=== PATIENT | female | born 1960 | race African-American/Black ===

== ENCOUNTER 2021-04-19 08:49 | Inpatient (IN) | payer OTHER, MEDICAID ==
[~2021-04-19] VITALS: Ht 167.6 cm; Wt 94.8 kg
[2021-04-19] MEDS ORDERED: VANCOMYCIN 1 G PREMIX 200 ML IV ONE (09:15)
[2021-04-19] MEDS ORDERED: PIPERACILLIN/TAZ 3.375G PREMIX 50 ML IV ONE (09:15)
[2021-04-19] MEDS ORDERED: SODIUM CHLORIDE 0.9% 1000ML BAG (SEPSIS BOLUS) IV ONE (09:15)
[2021-04-19] MEDS ORDERED: FENTANYL CITRATE/PF 500 MCG in SODIUM CHLORIDE 0.9% 40 ML IV STA (09:20)
[2021-04-19] MEDS ORDERED: FENTANYL CITRATE/PF 50MCG/ML 2ML VIAL IV ONE (09:30)
[2021-04-19] MEDS ORDERED: MIDAZOLAM HCL 100 MG in SODIUM CHLORIDE 0.9% 100 ML IV PRN (09:30)
[2021-04-19] MEDS ORDERED: MIDAZOLAM HCL 100 MG in DEXT 5% WATER 80 ML IV ONE (09:30)
[2021-04-19 09:39] LABS: BASOPHILS % 0.6 % (0.0-2.0); CHLORIDE 107 mEq/L (98-107); EOSINOPHILS % 0.1 % (0.0-5.0); HEMOGLOBIN. 13.3 g/dL (12.0-16.0); LYMPHOCYTES % 32.6 % (20.0-50.0); MEAN CORPUSCULAR HEMOGLOBIN 26.7 pg (28.0-32.0); MONOCYTES % 5.2 % (2.0-8.0); NEUTROPHILS % 61.5 % (40.0-76.0); PLATELET 136 x1000/uL (130-400); RED CELL DISTRIBUTION WIDTH 15.4 % (11.6-14.6)
[2021-04-19 09:45] LABS: D-DIMER 3.96 mg/L FEU (<0.50); INR 1.1; PROTHROMBIN TIME 11.4 sec (9.6-11.0)
[2021-04-19 09:49] LABS: CREATINE KINASE 189 IU/L (26-192)
[2021-04-19 09:53] LABS: BG BASE EXCESS -13.2 mmol/L (-2.0-2.0); BG CARBOXYHEMOGLOBIN 0.3 % (0.5-1.5); BG DEOXYHEMOGLOBIN 3.9 % (0.0-5.0); BG HCO3 ACT 15.5 mmol/L (22.0-26.0); BG METHEMOGLOBIN 0.1 % (0.0-1.5); BG OXYGEN SATURATION 96.1 % (92.0-98.5); BG OXYHEMOGLOBIN 95.7 % (94.0-97.0); BG PCO2 46.9 mmHg (35.0-45.0); BG PH 7.137 (7.350-7.450); BG PO2 115.4 mmHg (75.0-100.0); BG SAMPLE SITE RIGHT RADIAL; BG TOTAL HEMOGLOBIN 12.3 g/dL (12.0-18.0); BG VENT MODE VENT - AC
[2021-04-19 09:58] LABS: CLARITY URINE TURBID (CLEAR); COLOR URINE YELLOW (YELLOW); KETONES URINE NEGATIVE (NEGATIVE); LEUKOCYTE ESTERASE URINE NEGATIVE (NEGATIVE); NITRITE URINE NEGATIVE (NEGATIVE); OCCULT BLOOD URINE 3+ (NEGATIVE); PROTEIN URINE 4+ (NEGATIVE); SPECIFIC GRAVITY URINE 1.058 (1.005-1.030); UROBILINOGEN URINE 0.2 E.U./dL (0.2-1.0)
[2021-04-19] MEDS ORDERED: FENTANYL CITRATE 2,500 MCG in SODIUM CHLORIDE 0.9% 200 ML IV PRN (10:00)
[2021-04-19 16:05] LABS: BG BASE EXCESS -6.2 mmol/L (-2.0-2.0); BG CARBOXYHEMOGLOBIN 0.2 % (0.5-1.5); BG DEOXYHEMOGLOBIN 16.7 % (0.0-5.0); BG FRACTION INSPIRED OXYGEN 100; BG HCO3 ACT 20.1 mmol/L (22.0-26.0); BG METHEMOGLOBIN 0.2 % (0.0-1.5); BG OXYGEN SATURATION 83.2 % (92.0-98.5); BG OXYHEMOGLOBIN 82.9 % (94.0-97.0); BG PCO2 42.5 mmHg (35.0-45.0); BG PH 7.292 (7.350-7.450); BG PO2 54.8 mmHg (75.0-100.0); BG SAMPLE SITE RIGHT RADIAL; BG TOTAL HEMOGLOBIN 13.1 g/dL (12.0-18.0); BG VENT MODE VENT - AC
[2021-04-19] MEDS ORDERED: FUROSEMIDE 40MG/4ML VIAL IVP SCH (17:15)
[2021-04-19] MEDS ORDERED: ACETAMINOPHEN 650MG/20.3ML UDC GT PRN (17:30)
[2021-04-19] MEDS ORDERED: CEFEPIME 2,000 MG in DEXT 5% WATER 100 ML IV SCH (17:45)
[2021-04-19] MEDS ORDERED: MIDAZOLAM HCL 100 MG in SODIUM CHLORIDE 0.9% 80 ML IV PRN (18:00)
[2021-04-19] MEDS: METRONIDAZOLE 500 MG PREMIX 100 ML IV SCH (18:26)
[2021-04-19] MEDS: DEXAMETHASONE 10 MG/ML VIAL IV SCH (18:27)
[2021-04-19] MEDS: ENOXAPARIN 40MG/0.4ML SYR SUBCUT SCH (18:28)
[2021-04-19] MEDS: CEFEPIME 1,000 MG in DEXTROSE 5% WATER 50 ML IV SCH (18:52)
[2021-04-19] MEDS ORDERED: NOREPINEPHRINE 8MG/250ML PMX 250 ML IV NR (20:45)
[2021-04-19] MEDS: FAMOTIDINE 20MG/2ML VIAL IV SCH (21:30)
[2021-04-19] MEDS ORDERED: IPRATROPIUM/ALBUTEROL 0.5-3(2.5)MG/3ML NEB HHN PRN (22:45)
[2021-04-20] MEDS: METRONIDAZOLE 500 MG PREMIX 100 ML IV SCH ×3 (03:19→18:10)
[2021-04-20] MEDS: IPRATROPIUM/ALBUTEROL 0.5-3(2.5)MG/3ML NEB HHN SCH ×5 (04:00→20:40)
[2021-04-20 05:02] LABS: HEMATOCRIT. 40.3 % (36.0-48.0); HEMOGLOBIN. 12.5 g/dL (12.0-16.0); MEAN CORPUSCULAR HEMOGLOBIN 25.8 pg (28.0-32.0); MEAN CORPUSCULAR VOLUME 83.6 fL (81.0-99.0); PLATELET 167 x1000/uL (130-400); RED BLOOD CELL COUNT 4.82 mill/uL (4.2-5.4); RED CELL DISTRIBUTION WIDTH 15.4 % (11.6-14.6)
[2021-04-20 05:10] LABS: CHLORIDE 112 mEq/L (98-107)
[2021-04-20] MEDS: FUROSEMIDE 40MG/4ML VIAL IVP SCH ×2 (08:45→17:32)
[2021-04-20] MEDS: ASPIRIN 81MG TABLET PO SCH (08:45)
[2021-04-20] MEDS: DEXAMETHASONE 10 MG/ML VIAL IV SCH (08:45)
[2021-04-20 09:56] LABS: BG BASE EXCESS -5.5 mmol/L (-2.0-2.0); BG CARBOXYHEMOGLOBIN 0.7 % (0.5-1.5); BG DEOXYHEMOGLOBIN 9.1 % (0.0-5.0); BG FRACTION INSPIRED OXYGEN 100; BG HCO3 ACT 19.7 mmol/L (22.0-26.0); BG METHEMOGLOBIN 0.2 % (0.0-1.5); BG OXYGEN SATURATION 90.8 % (92.0-98.5); BG PCO2 37.5 mmHg (35.0-45.0); BG PH 7.338 (7.350-7.450); BG PO2 65.3 mmHg (75.0-100.0); BG SAMPLE SITE LEFT RADIAL; BG TOTAL HEMOGLOBIN 13.9 g/dL (12.0-18.0)
[2021-04-20 14:41] LABS: PLATELET ESTIMATE NORMAL
[2021-04-20] MEDS: ENOXAPARIN 40MG/0.4ML SYR SUBCUT SCH (18:11)
[2021-04-20] MEDS: CEFEPIME 1,000 MG in DEXTROSE 5% WATER 50 ML IV SCH (19:26)
[2021-04-20] MEDS: FAMOTIDINE 20MG/2ML VIAL IV SCH (21:00)
[2021-04-20 22:49] LABS: HEMATOCRIT. 44.1 % (36.0-48.0); MEAN CORPUSCULAR HEMOGLOBIN 26.3 pg (28.0-32.0); MEAN CORPUSCULAR VOLUME 82.8 fL (81.0-99.0); RED BLOOD CELL COUNT 5.33 mill/uL (4.2-5.4); RED CELL DISTRIBUTION WIDTH 15.5 % (11.6-14.6)
[2021-04-20] MEDS ORDERED: VANCOMYCIN 750 MG PREMIX 150 ML IV SCH (23:00)
[2021-04-20 23:15] VITALS: BP 108/50
[2021-04-20 23:30] VITALS: BP 122/70
[2021-04-20 23:45] VITALS: BP 91/65
[2021-04-21] VITALS (106 sets, daily range): BP systolic 58–154; BP diastolic 33–113
[2021-04-21] MEDS ORDERED: NOREPINEPHRINE 32 MG in DEXT 5% WATER 218 ML IV PRN
[2021-04-21] MEDS ORDERED: AMIODARONE HCL 150 MG in DEXT 5% WATER 97 ML IV SCH (00:15)
[2021-04-21] MEDS: IPRATROPIUM/ALBUTEROL 0.5-3(2.5)MG/3ML NEB HHN SCH ×5 (00:20→20:46)
[2021-04-21] MEDS: PHENYLEPHRINE 100 MG in DEXT 5% WATER 240 ML IV PRN (00:44)
[2021-04-21] MEDS: FENTANYL CITRATE/PF 2,500 MCG in SODIUM CHLORIDE 0.9% 200 ML IV PRN ×2 (00:47→22:17)
[2021-04-21] MEDS: METRONIDAZOLE 500 MG PREMIX 100 ML IV SCH ×3 (02:43→18:05)
[2021-04-21] MEDS ORDERED: ONDA4TAB5 PO (03:02)
[2021-04-21] MEDS ORDERED: ACYC200C31 PO (03:02)
[2021-04-21] MEDS ORDERED: POTA-9 PO (03:02)
[2021-04-21] MEDS ORDERED: LENA25CA PO (03:02)
[2021-04-21] MEDS ORDERED: TOPUD PO (03:02)
[2021-04-21] MEDS ORDERED: FURO-151 PO (03:02)
[2021-04-21] MEDS ORDERED: FURO-152 PO (03:02)
[2021-04-21] MEDS ORDERED: DEXA4TAB69 PO (03:02)
[2021-04-21] MEDS ORDERED: ALLO300T2 PO (03:02)
[2021-04-21] MEDS ORDERED: PROC-11 PO (03:02)
[2021-04-21] MEDS ORDERED: METO25TA6 PO (03:02)
[2021-04-21] MEDS ORDERED: VALA10002 PO (03:02)
[2021-04-21] MEDS ORDERED: ERGO80009 PO (03:02)
[2021-04-21] MEDS ORDERED: LOSA25TA3 PO (03:02)
[2021-04-21 04:58] LABS: BASOPHILS % 0.6 % (0.0-2.0); HEMATOCRIT. 45.8 % (36.0-48.0); HEMOGLOBIN. 14.2 g/dL (12.0-16.0); LYMPHOCYTES % 10.9 % (20.0-50.0); MEAN CORPUSCULAR HEMOGLOBIN 26.2 pg (28.0-32.0); MEAN CORPUSCULAR VOLUME 84.5 fL (81.0-99.0); MEAN PLATELET VOLUME 11.1 fl (7.4-10.4); MONOCYTES % 5.5 % (2.0-8.0); PLATELET 196 x1000/uL (130-400); RED BLOOD CELL COUNT 5.42 mill/uL (4.2-5.4); RED CELL DISTRIBUTION WIDTH 16.1 % (11.6-14.6)
[2021-04-21] MEDS ORDERED: DEXTROSE 50% WATER 50ML SYRINGE IV PRN (05:45)
[2021-04-21] MEDS: FUROSEMIDE 40MG/4ML VIAL IVP SCH ×2 (06:18→18:05)
[2021-04-21] MEDS: DEXAMETHASONE 10 MG/ML VIAL IV SCH (09:47)
[2021-04-21] MEDS: ASPIRIN 81MG TABLET PO SCH (09:47)
[2021-04-21] MEDS: MIDAZOLAM HCL 100 MG in SODIUM CHLORIDE 0.9% 80 ML IV PRN ×2 (10:00→22:16)
[2021-04-21 10:34] LABS: BG BASE EXCESS -5.9 mmol/L (-2.0-2.0); BG CARBOXYHEMOGLOBIN 0.1 % (0.5-1.5); BG DEOXYHEMOGLOBIN 1.7 % (0.0-5.0); BG FRACTION INSPIRED OXYGEN 100; BG HCO3 ACT 18.4 mmol/L (22.0-26.0); BG METHEMOGLOBIN 0.3 % (0.0-1.5); BG OXYGEN SATURATION 98.3 % (92.0-98.5); BG OXYHEMOGLOBIN 97.9 % (94.0-97.0); BG PCO2 33.2 mmHg (35.0-45.0); BG PH 7.362 (7.350-7.450); BG PO2 134.4 mmHg (75.0-100.0); BG SAMPLE SITE UAL; BG VENT MODE VENT - PRVC
[2021-04-21] MEDS: ENOXAPARIN 100MG/ML SYR SUBCUT SCH (11:30)
[2021-04-21] MEDS: BLOOD SUGAR DIAGNOSTIC STRIP TEST SCH ×3 (11:39→23:42)
[2021-04-21] MEDS: INSULIN LISPRO 100 UNITS/ML SUBCUT SCH ×3 (11:40→23:42)
[2021-04-21] MEDS ORDERED: LIDOCAINE HCL 1% 20ML VIAL (Pyxis) INJ ONE (11:43)
[2021-04-21 12:36] LABS: HEPATITIS B SURFACE ANTIGEN NEGATIVE
[2021-04-21] MEDS: CEFEPIME 1,000 MG in DEXTROSE 5% WATER 50 ML IV SCH (18:05)
[2021-04-21] MEDS: FAMOTIDINE 20MG/2ML VIAL IV SCH (20:05)
[2021-04-22] VITALS (98 sets, daily range): BP systolic 63–143; BP diastolic 47–92
[2021-04-22] MEDS: IPRATROPIUM/ALBUTEROL 0.5-3(2.5)MG/3ML NEB HHN SCH ×6 (00:14→20:10)
[2021-04-22] MEDS: METRONIDAZOLE 500 MG PREMIX 100 ML IV SCH ×3 (01:09→18:00)
[2021-04-22 05:13] LABS: HEMATOCRIT. 36.7 % (36.0-48.0); HEMOGLOBIN. 11.4 g/dL (12.0-16.0); MEAN CORPUSCULAR VOLUME 83.4 fL (81.0-99.0); MEAN PLATELET VOLUME 10.9 fl (7.4-10.4); PLATELET 162 x1000/uL (130-400); RED CELL DISTRIBUTION WIDTH 15.9 % (11.6-14.6)
[2021-04-22 05:24] LABS: INR 1.1; PROTHROMBIN TIME 11.5 sec (9.6-11.0)
[2021-04-22] MEDS: INSULIN LISPRO 100 UNITS/ML SUBCUT SCH ×3 (06:00→17:58)
[2021-04-22] MEDS: BLOOD SUGAR DIAGNOSTIC STRIP TEST SCH ×3 (06:00→17:58)
[2021-04-22] MEDS: FUROSEMIDE 40MG/4ML VIAL IVP SCH ×2 (06:18→18:00)
[2021-04-22 08:09] LABS: ANTI-NUCLEAR ANTIBODIES DIRECT Negative (Negative)
[2021-04-22] MEDS: ENOXAPARIN 100MG/ML SYR SUBCUT SCH (08:26)
[2021-04-22 08:57] LABS: BG BASE EXCESS -4.8 mmol/L (-2.0-2.0); BG CARBOXYHEMOGLOBIN 0.1 % (0.5-1.5); BG DEOXYHEMOGLOBIN 5.1 % (0.0-5.0); BG FRACTION INSPIRED OXYGEN 90; BG HCO3 ACT 18.7 mmol/L (22.0-26.0); BG METHEMOGLOBIN 0.1 % (0.0-1.5); BG OXYGEN SATURATION 94.9 % (92.0-98.5); BG OXYHEMOGLOBIN 94.7 % (94.0-97.0); BG PCO2 29.9 mmHg (35.0-45.0); BG PH 7.414 (7.350-7.450); BG PO2 79.1 mmHg (75.0-100.0); BG SAMPLE SITE RIGHT RADIAL; BG VENT MODE VENT - PRVC
[2021-04-22] MEDS: ASPIRIN 81MG TABLET PO SCH (09:44)
[2021-04-22] MEDS: DEXAMETHASONE 10 MG/ML VIAL IV SCH (09:44)
[2021-04-22 10:45] LABS: PLATELET ESTIMATE NORMAL
[2021-04-22] MEDS ORDERED: VANCOMYCIN 500 MG PREMIX 100 ML IV NR (20:00)
[2021-04-22] MEDS: FAMOTIDINE 20MG/2ML VIAL IV SCH (20:12)
[2021-04-22] MEDS: CEFEPIME 1,000 MG in DEXTROSE 5% WATER 50 ML IV SCH (20:13)
[2021-04-22] MEDS: MIDAZOLAM HCL 100 MG in SODIUM CHLORIDE 0.9% 80 ML IV PRN (20:28)
[2021-04-22] MEDS: PHENYLEPHRINE 100 MG in DEXT 5% WATER 240 ML IV PRN (20:29)
[2021-04-23] VITALS (92 sets, daily range): BP systolic 87–177; BP diastolic 56–119
[2021-04-23] MEDS: IPRATROPIUM/ALBUTEROL 0.5-3(2.5)MG/3ML NEB HHN SCH ×6 (00:36→20:36)
[2021-04-23] MEDS: METRONIDAZOLE 500 MG PREMIX 100 ML IV SCH ×3 (02:18→17:53)
[2021-04-23 05:47] LABS: HEMATOCRIT. 35.3 % (36.0-48.0); HEMOGLOBIN. 11.2 g/dL (12.0-16.0); MEAN CORPUSCULAR HEMOGLOBIN 25.8 pg (28.0-32.0); MEAN CORPUSCULAR VOLUME 81.1 fL (81.0-99.0); MEAN PLATELET VOLUME 10.6 fl (7.4-10.4); PLATELET 163 x1000/uL (130-400); RED BLOOD CELL COUNT 4.35 mill/uL (4.2-5.4); RED CELL DISTRIBUTION WIDTH 15.4 % (11.6-14.6)
[2021-04-23] MEDS: BLOOD SUGAR DIAGNOSTIC STRIP TEST SCH ×5 (06:00→23:24)
[2021-04-23] MEDS: INSULIN LISPRO 100 UNITS/ML SUBCUT SCH ×5 (06:00→23:26)
[2021-04-23 10:50] LABS: BG BASE EXCESS -0.5 mmol/L (-2.0-2.0); BG CARBOXYHEMOGLOBIN 0.1 % (0.5-1.5); BG DEOXYHEMOGLOBIN 1.7 % (0.0-5.0); BG METHEMOGLOBIN 0.2 % (0.0-1.5); BG OXYGEN SATURATION 98.3 % (92.0-98.5); BG PCO2 34.4 mmHg (35.0-45.0); BG PH 7.443 (7.350-7.450); BG SAMPLE SITE RIGHT RADIAL; BG VENT MODE VENT- PRVC
[2021-04-23] MEDS: DEXAMETHASONE 10 MG/ML VIAL IV SCH (10:58)
[2021-04-23] MEDS: FUROSEMIDE 40MG/4ML VIAL IVP SCH (10:58)
[2021-04-23] MEDS: ASPIRIN 81MG TABLET PO SCH (10:58)
[2021-04-23] MEDS: FOLIC ACID/VITAMIN B COMP W-C TABLET PO SCH (10:58)
[2021-04-23] MEDS: ENOXAPARIN 100MG/ML SYR SUBCUT SCH (10:59)
[2021-04-23] MEDS: FENTANYL CITRATE/PF 2,500 MCG in SODIUM CHLORIDE 0.9% 200 ML IV PRN (11:16)
[2021-04-23 12:31] LABS: PLATELET ESTIMATE NORMAL
[2021-04-23] MEDS: MIDAZOLAM HCL 100 MG in SODIUM CHLORIDE 0.9% 80 ML IV PRN (17:54)
[2021-04-23] MEDS: CEFEPIME 1,000 MG in DEXTROSE 5% WATER 50 ML IV SCH (19:47)
[2021-04-23] MEDS: FAMOTIDINE 20MG/2ML VIAL IV SCH (21:16)
[2021-04-24] VITALS (96 sets, daily range): BP systolic 94–126; BP diastolic 56–83
[2021-04-24] MEDS: IPRATROPIUM/ALBUTEROL 0.5-3(2.5)MG/3ML NEB HHN SCH ×6 (00:25→21:16)
[2021-04-24] MEDS: METRONIDAZOLE 500 MG PREMIX 100 ML IV SCH ×3 (01:43→17:19)
[2021-04-24 05:48] LABS: HEMATOCRIT. 31.3 % (36.0-48.0); HEMOGLOBIN. 9.9 g/dL (12.0-16.0); MEAN CORPUSCULAR HEMOGLOBIN 26.4 pg (28.0-32.0); MEAN CORPUSCULAR VOLUME 83.8 fL (81.0-99.0); MEAN PLATELET VOLUME 10.3 fl (7.4-10.4); PLATELET 116 x1000/uL (130-400); RED BLOOD CELL COUNT 3.74 mill/uL (4.2-5.4); RED CELL DISTRIBUTION WIDTH 15.7 % (11.6-14.6)
[2021-04-24] MEDS: BLOOD SUGAR DIAGNOSTIC STRIP TEST SCH ×3 (05:51→17:43)
[2021-04-24] MEDS: INSULIN LISPRO 100 UNITS/ML SUBCUT SCH ×3 (05:53→17:47)
[2021-04-24] MEDS: FOLIC ACID/VITAMIN B COMP W-C TABLET PO SCH (08:35)
[2021-04-24] MEDS: DEXAMETHASONE 10 MG/ML VIAL IV SCH (08:35)
[2021-04-24] MEDS: ASPIRIN 81MG TABLET PO SCH (08:35)
[2021-04-24 09:39] LABS: BG BASE EXCESS -2.9 mmol/L (-2.0-2.0); BG CARBOXYHEMOGLOBIN 0.3 % (0.5-1.5); BG DEOXYHEMOGLOBIN 1.3 % (0.0-5.0); BG FRACTION INSPIRED OXYGEN 90; BG HCO3 ACT 20.4 mmol/L (22.0-26.0); BG METHEMOGLOBIN 0.3 % (0.0-1.5); BG OXYGEN SATURATION 98.7 % (92.0-98.5); BG OXYHEMOGLOBIN 98.1 % (94.0-97.0); BG PCO2 30.5 mmHg (35.0-45.0); BG PH 7.444 (7.350-7.450); BG PO2 182.5 mmHg (75.0-100.0); BG SAMPLE SITE RIGHT RADIAL; BG TOTAL HEMOGLOBIN 10.4 g/dL (12.0-18.0); BG VENT MODE VENT - PRVC
[2021-04-24] MEDS: ENOXAPARIN 100MG/ML SYR SUBCUT SCH (11:01)
[2021-04-24] MEDS: MIDAZOLAM HCL 100 MG in SODIUM CHLORIDE 0.9% 80 ML IV PRN (13:51)
[2021-04-24 16:48] LABS: PLATELET ESTIMATE DECREASED
[2021-04-24] MEDS: CEFEPIME 1,000 MG in DEXTROSE 5% WATER 50 ML IV SCH (17:46)
[2021-04-24] MEDS: FAMOTIDINE 20MG/2ML VIAL IV SCH (20:38)
[2021-04-24] MEDS: FENTANYL CITRATE/PF 2,500 MCG in SODIUM CHLORIDE 0.9% 200 ML IV PRN (22:18)
[2021-04-25] VITALS (94 sets, daily range): BP systolic 78–164; BP diastolic 48–113
[2021-04-25] MEDS: BLOOD SUGAR DIAGNOSTIC STRIP TEST SCH ×4 (00:53→17:38)
[2021-04-25] MEDS: IPRATROPIUM/ALBUTEROL 0.5-3(2.5)MG/3ML NEB HHN SCH ×6 (01:36→20:18)
[2021-04-25 05:26] LABS: HEMATOCRIT. 33.6 % (36.0-48.0); MEAN CORPUSCULAR HEMOGLOBIN 26.4 pg (28.0-32.0); MEAN CORPUSCULAR VOLUME 80.4 fL (81.0-99.0); PLATELET 125 x1000/uL (130-400); RED BLOOD CELL COUNT 4.17 mill/uL (4.2-5.4); RED CELL DISTRIBUTION WIDTH 15.2 % (11.6-14.6)
[2021-04-25] MEDS: INSULIN LISPRO 100 UNITS/ML SUBCUT SCH ×4 (06:00→17:38)
[2021-04-25 08:19] LABS: BG BASE EXCESS -2.5 mmol/L (-2.0-2.0); BG CARBOXYHEMOGLOBIN 0.3 % (0.5-1.5); BG DEOXYHEMOGLOBIN 2.1 % (0.0-5.0); BG HCO3 ACT 20.3 mmol/L (22.0-26.0); BG METHEMOGLOBIN 0.1 % (0.0-1.5); BG OXYGEN SATURATION 97.9 % (92.0-98.5); BG OXYHEMOGLOBIN 97.5 % (94.0-97.0); BG PCO2 28.5 mmHg (35.0-45.0); BG PO2 109.7 mmHg (75.0-100.0); BG SAMPLE SITE RIGHT RADIAL; BG TOTAL HEMOGLOBIN 10.8 g/dL (12.0-18.0); BG VENT MODE VENT- PRVC
[2021-04-25] MEDS: ASPIRIN 81MG TABLET PO SCH (08:35)
[2021-04-25] MEDS: FOLIC ACID/VITAMIN B COMP W-C TABLET PO SCH (08:35)
[2021-04-25] MEDS: DEXAMETHASONE 10 MG/ML VIAL IV SCH (08:35)
[2021-04-25] MEDS: PHENYLEPHRINE 100 MG in DEXT 5% WATER 240 ML IV PRN (09:42)
[2021-04-25] MEDS: ENOXAPARIN 100MG/ML SYR SUBCUT SCH (09:44)
[2021-04-25] MEDS: MIDAZOLAM HCL 100 MG in SODIUM CHLORIDE 0.9% 80 ML IV PRN (11:53)
[2021-04-25 13:50] LABS: PLATELET ESTIMATE SLIGHTLY DECREASED
[2021-04-25] MEDS: FAMOTIDINE 20MG/2ML VIAL IV SCH (21:04)
[2021-04-26] VITALS (95 sets, daily range): BP systolic 83–129; BP diastolic 52–93
[2021-04-26] MEDS: IPRATROPIUM/ALBUTEROL 0.5-3(2.5)MG/3ML NEB HHN SCH ×5 (00:23→20:56)
[2021-04-26] MEDS: BLOOD SUGAR DIAGNOSTIC STRIP TEST SCH ×5 (00:26→23:24)
[2021-04-26] MEDS: INSULIN LISPRO 100 UNITS/ML SUBCUT SCH ×5 (05:44→23:24)
[2021-04-26 05:45] LABS: HEMOGLOBIN. 10.2 g/dL (12.0-16.0); MEAN CORPUSCULAR HEMOGLOBIN 25.9 pg (28.0-32.0); MEAN CORPUSCULAR VOLUME 81.6 fL (81.0-99.0); MEAN PLATELET VOLUME 10.4 fl (7.4-10.4); PLATELET 97 x1000/uL (130-400); RED BLOOD CELL COUNT 3.92 mill/uL (4.2-5.4); RED CELL DISTRIBUTION WIDTH 15.4 % (11.6-14.6)
[2021-04-26] MEDS: DEXAMETHASONE 10 MG/ML VIAL IV SCH (08:04)
[2021-04-26] MEDS: FOLIC ACID/VITAMIN B COMP W-C TABLET PO SCH (08:04)
[2021-04-26] MEDS: ASPIRIN 81MG TABLET PO SCH (08:04)
[2021-04-26] MEDS: FENTANYL CITRATE/PF 2,500 MCG in SODIUM CHLORIDE 0.9% 200 ML IV PRN (08:05)
[2021-04-26 08:32] LABS: PLATELET ESTIMATE DECREASED
[2021-04-26 09:26] LABS: BG BASE EXCESS -3.4 mmol/L (-2.0-2.0); BG CARBOXYHEMOGLOBIN 0.3 % (0.5-1.5); BG DEOXYHEMOGLOBIN 5.9 % (0.0-5.0); BG FRACTION INSPIRED OXYGEN 50; BG HCO3 ACT 22.4 mmol/L (22.0-26.0); BG METHEMOGLOBIN 0.1 % (0.0-1.5); BG OXYGEN SATURATION 94.1 % (92.0-98.5); BG OXYHEMOGLOBIN 93.7 % (94.0-97.0); BG PCO2 43.3 mmHg (35.0-45.0); BG PH 7.332 (7.350-7.450); BG PO2 75.3 mmHg (75.0-100.0); BG SAMPLE SITE LEFT RADIAL; BG TOTAL HEMOGLOBIN 10.6 g/dL (12.0-18.0); BG VENT MODE VENT - PRVC
[2021-04-26] MEDS: ENOXAPARIN 100MG/ML SYR SUBCUT SCH (10:36)
[2021-04-26] MEDS: MIDAZOLAM HCL 100 MG in SODIUM CHLORIDE 0.9% 80 ML IV PRN (11:14)
[2021-04-26] MEDS: FAMOTIDINE 20MG/2ML VIAL IV SCH (21:11)
[2021-04-27] VITALS (95 sets, daily range): BP systolic 84–154; BP diastolic 49–96
[2021-04-27] MEDS: IPRATROPIUM/ALBUTEROL 0.5-3(2.5)MG/3ML NEB HHN SCH ×6 (00:46→20:49)
[2021-04-27] MEDS: MIDAZOLAM HCL 100 MG in SODIUM CHLORIDE 0.9% 80 ML IV PRN (02:14)
[2021-04-27] MEDS: BLOOD SUGAR DIAGNOSTIC STRIP TEST SCH ×3 (05:14→17:21)
[2021-04-27] MEDS: INSULIN LISPRO 100 UNITS/ML SUBCUT SCH ×3 (05:24→17:21)
[2021-04-27 05:29] LABS: HEMATOCRIT. 28.5 % (36.0-48.0); HEMOGLOBIN. 9.1 g/dL (12.0-16.0); MEAN CORPUSCULAR HEMOGLOBIN 26.1 pg (28.0-32.0); MEAN CORPUSCULAR VOLUME 81.4 fL (81.0-99.0); MEAN PLATELET VOLUME 10.6 fl (7.4-10.4); PLATELET 95 x1000/uL (130-400); RED CELL DISTRIBUTION WIDTH 15.6 % (11.6-14.6)
[2021-04-27 07:26] LABS: PLATELET ESTIMATE DECREASED
[2021-04-27 08:25] LABS: BG BASE EXCESS -1.3 mmol/L (-2.0-2.0); BG DEOXYHEMOGLOBIN 2.9 % (0.0-5.0); BG HCO3 ACT 23.7 mmol/L (22.0-26.0); BG METHEMOGLOBIN 0.1 % (0.0-1.5); BG OXYGEN SATURATION 97.1 % (92.0-98.5); BG PCO2 40.8 mmHg (35.0-45.0); BG PH 7.382 (7.350-7.450); BG PO2 96.4 mmHg (75.0-100.0); BG SAMPLE SITE RIGHT RADIAL; BG TOTAL HEMOGLOBIN 9.2 g/dL (12.0-18.0); BG VENT MODE VENT- PRVC
[2021-04-27] MEDS: ASPIRIN 81MG TABLET PO SCH (08:52)
[2021-04-27] MEDS: FOLIC ACID/VITAMIN B COMP W-C TABLET PO SCH (08:52)
[2021-04-27] MEDS: DEXAMETHASONE 10 MG/ML VIAL IV SCH (08:52)
[2021-04-27] MEDS: ENOXAPARIN 100MG/ML SYR SUBCUT SCH (10:48)
[2021-04-27] MEDS: FENTANYL CITRATE/PF 2,500 MCG in SODIUM CHLORIDE 0.9% 200 ML IV PRN (18:26)
[2021-04-27] MEDS: FAMOTIDINE 20MG/2ML VIAL IV SCH (21:06)
[2021-04-28] VITALS (95 sets, daily range): BP systolic 87–144; BP diastolic 47–87
[2021-04-28] MEDS: IPRATROPIUM/ALBUTEROL 0.5-3(2.5)MG/3ML NEB HHN SCH ×6 (00:37→21:08)
[2021-04-28] MEDS: FENTANYL CITRATE/PF 2,500 MCG in SODIUM CHLORIDE 0.9% 200 ML IV PRN (03:21)
[2021-04-28] MEDS: MIDAZOLAM HCL 100 MG in SODIUM CHLORIDE 0.9% 80 ML IV PRN ×2 (03:26→16:18)
[2021-04-28] MEDS: INSULIN LISPRO 100 UNITS/ML SUBCUT SCH ×4 (05:42→17:48)
[2021-04-28] MEDS: BLOOD SUGAR DIAGNOSTIC STRIP TEST SCH ×4 (05:42→17:48)
[2021-04-28 05:46] LABS: HEMATOCRIT. 26.5 % (36.0-48.0); HEMOGLOBIN. 8.6 g/dL (12.0-16.0); MEAN CORPUSCULAR HEMOGLOBIN 26.4 pg (28.0-32.0); MEAN CORPUSCULAR VOLUME 81.2 fL (81.0-99.0); MEAN PLATELET VOLUME 10.7 fl (7.4-10.4); PLATELET 71 x1000/uL (130-400); RED BLOOD CELL COUNT 3.27 mill/uL (4.2-5.4); RED CELL DISTRIBUTION WIDTH 15.5 % (11.6-14.6)
[2021-04-28] MEDS ORDERED: PROPOFOL 10MG/ML 100ML 100 ML IV PRN (06:30)
[2021-04-28 08:18] LABS: PLATELET ESTIMATE DECREASED
[2021-04-28] MEDS: DEXAMETHASONE 10 MG/ML VIAL IV SCH (08:36)
[2021-04-28] MEDS: ASPIRIN 81MG TABLET PO SCH (08:36)
[2021-04-28] MEDS: FOLIC ACID/VITAMIN B COMP W-C TABLET PO SCH (08:36)
[2021-04-28 09:09] LABS: BG BASE EXCESS -1.7 mmol/L (-2.0-2.0); BG CARBOXYHEMOGLOBIN 0.1 % (0.5-1.5); BG DEOXYHEMOGLOBIN 18.9 % (0.0-5.0); BG FRACTION INSPIRED OXYGEN 45; BG HCO3 ACT 24.7 mmol/L (22.0-26.0); BG OXYGEN SATURATION 81.1 % (92.0-98.5); BG PCO2 50.7 mmHg (35.0-45.0); BG PH 7.306 (7.350-7.450); BG PO2 50.5 mmHg (75.0-100.0); BG SAMPLE SITE RIGHT RADIAL; BG TOTAL HEMOGLOBIN 8.7 g/dL (12.0-18.0); BG TOTAL RESPIRATORY RATE 14 b/min; BG VENT MODE VENT- PRVC
[2021-04-28] MEDS ORDERED: HEPARIN SODIUM 1,000 UNIT/1ML VIAL IV SCH (10:15)
[2021-04-28] MEDS: FAMOTIDINE 20MG/2ML VIAL IV SCH (20:23)
[2021-04-29] VITALS (95 sets, daily range): BP systolic 95–149; BP diastolic 58–94
[2021-04-29] MEDS: IPRATROPIUM/ALBUTEROL 0.5-3(2.5)MG/3ML NEB HHN SCH ×6 (00:24→21:16)
[2021-04-29] MEDS: BLOOD SUGAR DIAGNOSTIC STRIP TEST SCH ×4 (00:52→17:09)
[2021-04-29] MEDS: INSULIN LISPRO 100 UNITS/ML SUBCUT SCH ×4 (05:54→17:27)
[2021-04-29 05:55] LABS: HEMATOCRIT. 26.1 % (36.0-48.0); HEMOGLOBIN. 8.3 g/dL (12.0-16.0); MEAN CORPUSCULAR HEMOGLOBIN 25.7 pg (28.0-32.0); MEAN CORPUSCULAR VOLUME 80.7 fL (81.0-99.0); MEAN PLATELET VOLUME 11.5 fl (7.4-10.4); PLATELET 96 x1000/uL (130-400); RED BLOOD CELL COUNT 3.24 mill/uL (4.2-5.4); RED CELL DISTRIBUTION WIDTH 15.4 % (11.6-14.6)
[2021-04-29 06:34] LABS: PHOSPHORUS 5.3 mg/dL (2.5-4.9)
[2021-04-29] MEDS: DEXAMETHASONE 10 MG/ML VIAL IV SCH (09:17)
[2021-04-29] MEDS: FOLIC ACID/VITAMIN B COMP W-C TABLET PO SCH (09:17)
[2021-04-29] MEDS: ASPIRIN 81MG TABLET PO SCH (09:17)
[2021-04-29 09:21] LABS: BG BASE EXCESS -1.8 mmol/L (-2.0-2.0); BG CARBOXYHEMOGLOBIN 0.3 % (0.5-1.5); BG FRACTION INSPIRED OXYGEN 55; BG HCO3 ACT 23.6 mmol/L (22.0-26.0); BG METHEMOGLOBIN 0.1 % (0.0-1.5); BG OXYHEMOGLOBIN 97.6 % (94.0-97.0); BG PCO2 43.1 mmHg (35.0-45.0); BG PH 7.357 (7.350-7.450); BG PO2 129.3 mmHg (75.0-100.0); BG SAMPLE SITE LEFT RADIAL; BG TOTAL HEMOGLOBIN 11.3 g/dL (12.0-18.0); BG VENT MODE PRVC-AC
[2021-04-29 10:38] LABS: PLATELET ESTIMATE DECREASED
[2021-04-29] MEDS: FENTANYL CITRATE/PF 2,500 MCG in SODIUM CHLORIDE 0.9% 200 ML IV PRN ×2 (10:42→22:39)
[2021-04-29] MEDS: MIDAZOLAM HCL 100 MG in SODIUM CHLORIDE 0.9% 80 ML IV PRN (12:45)
[2021-04-29] MEDS: CALCIUM ACETATE 667MG CAPSULE PO SCH ×2 (13:05→17:08)
[2021-04-29] MEDS: ENOXAPARIN 100MG/ML SYR SUBCUT SCH (17:08)
[2021-04-29] MEDS: FAMOTIDINE 20MG/2ML VIAL IV SCH (21:18)
[2021-04-30] VITALS (90 sets, daily range): BP systolic 106–160; BP diastolic 69–105
[2021-04-30] MEDS: IPRATROPIUM/ALBUTEROL 0.5-3(2.5)MG/3ML NEB HHN SCH ×4 (00:56→20:24)
[2021-04-30] MEDS: BLOOD SUGAR DIAGNOSTIC STRIP TEST SCH ×4 (00:58→17:40)
[2021-04-30] MEDS: INSULIN LISPRO 100 UNITS/ML SUBCUT SCH ×4 (05:45→17:40)
[2021-04-30 06:04] LABS: HEMATOCRIT. 26.1 % (36.0-48.0); HEMOGLOBIN. 8.5 g/dL (12.0-16.0); MEAN CORPUSCULAR HEMOGLOBIN 26.2 pg (28.0-32.0); MEAN CORPUSCULAR VOLUME 80.3 fL (81.0-99.0); MEAN PLATELET VOLUME 11.4 fl (7.4-10.4); PLATELET 127 x1000/uL (130-400); RED BLOOD CELL COUNT 3.25 mill/uL (4.2-5.4); RED CELL DISTRIBUTION WIDTH 15.5 % (11.6-14.6)
[2021-04-30] MEDS: CALCIUM ACETATE 667MG CAPSULE PO SCH ×3 (07:46→17:16)
[2021-04-30 09:46] LABS: BG BASE EXCESS -1.2 mmol/L (-2.0-2.0); BG CARBOXYHEMOGLOBIN 0.3 % (0.5-1.5); BG DEOXYHEMOGLOBIN 1.4 % (0.0-5.0); BG FRACTION INSPIRED OXYGEN 45; BG HCO3 ACT 23.7 mmol/L (22.0-26.0); BG METHEMOGLOBIN 0.3 % (0.0-1.5); BG OXYGEN SATURATION 98.6 % (92.0-98.5); BG PCO2 40.4 mmHg (35.0-45.0); BG PH 7.386 (7.350-7.450); BG PO2 143.4 mmHg (75.0-100.0); BG SAMPLE SITE LEFT RADIAL; BG TOTAL HEMOGLOBIN 8.5 g/dL (12.0-18.0); BG VENT MODE VENT - PRVC
[2021-04-30] MEDS: DEXAMETHASONE 10 MG/ML VIAL IV SCH (10:47)
[2021-04-30] MEDS: FOLIC ACID/VITAMIN B COMP W-C TABLET PO SCH (10:47)
[2021-04-30] MEDS: ASPIRIN 81MG TABLET PO SCH (10:47)
[2021-04-30] MEDS: PHENYLEPHRINE 100 MG in DEXT 5% WATER 240 ML IV PRN (10:57)
[2021-04-30] MEDS: ENOXAPARIN 100MG/ML SYR SUBCUT SCH (17:16)
[2021-04-30] MEDS: CLONIDINE 0.1MG TABLET PO PRN (17:18)
[2021-04-30] MEDS: MIDAZOLAM HCL 100 MG in SODIUM CHLORIDE 0.9% 80 ML IV PRN (18:36)
[2021-04-30 21:03] LABS: PLATELET ESTIMATE DECREASED
[2021-04-30] MEDS: FAMOTIDINE 20MG TABLET PO SCH (21:15)
[2021-05-01] VITALS (92 sets, daily range): BP systolic 89–165; BP diastolic 58–95
[2021-05-01] MEDS: IPRATROPIUM/ALBUTEROL 0.5-3(2.5)MG/3ML NEB HHN SCH ×6 (00:21→20:35)
[2021-05-01] MEDS: BLOOD SUGAR DIAGNOSTIC STRIP TEST SCH ×4 (05:30→18:02)
[2021-05-01] MEDS: FENTANYL CITRATE/PF 2,500 MCG in SODIUM CHLORIDE 0.9% 200 ML IV PRN (05:33)
[2021-05-01] MEDS: MIDAZOLAM HCL 100 MG in SODIUM CHLORIDE 0.9% 80 ML IV PRN (05:33)
[2021-05-01 05:41] LABS: MEAN CORPUSCULAR HEMOGLOBIN 25.9 pg (28.0-32.0); MEAN CORPUSCULAR VOLUME 80.9 fL (81.0-99.0); MEAN PLATELET VOLUME 10.7 fl (7.4-10.4); PLATELET 134 x1000/uL (130-400); RED BLOOD CELL COUNT 3.46 mill/uL (4.2-5.4); RED CELL DISTRIBUTION WIDTH 15.2 % (11.6-14.6)
[2021-05-01] MEDS: INSULIN LISPRO 100 UNITS/ML SUBCUT SCH ×5 (06:00→23:33)
[2021-05-01] MEDS: CALCIUM ACETATE 667MG CAPSULE PO SCH ×3 (07:06→17:46)
[2021-05-01] MEDS ORDERED: LIDOCAINE HCL 1% 20ML VIAL (Pyxis) INJ ONE (08:48)
[2021-05-01] MEDS: FOLIC ACID/VITAMIN B COMP W-C TABLET PO SCH (09:07)
[2021-05-01] MEDS: ASPIRIN 81MG TABLET PO SCH (09:07)
[2021-05-01] MEDS: DEXAMETHASONE 10 MG/ML VIAL IV SCH (09:07)
[2021-05-01 09:26] LABS: BG BASE EXCESS -0.4 mmol/L (-2.0-2.0); BG CARBOXYHEMOGLOBIN 0.4 % (0.5-1.5); BG DEOXYHEMOGLOBIN 1.4 % (0.0-5.0); BG FRACTION INSPIRED OXYGEN 45; BG HCO3 ACT 25.9 mmol/L (22.0-26.0); BG METHEMOGLOBIN 0.1 % (0.0-1.5); BG OXYGEN SATURATION 98.6 % (92.0-98.5); BG OXYHEMOGLOBIN 98.1 % (94.0-97.0); BG PCO2 50.4 mmHg (35.0-45.0); BG PH 7.328 (7.350-7.450); BG PO2 149.1 mmHg (75.0-100.0); BG SAMPLE SITE RIGHT RADIAL; BG TOTAL HEMOGLOBIN 9.4 g/dL (12.0-18.0); BG VENT MODE VENT - PRVC
[2021-05-01 09:35] LABS: PLATELET ESTIMATE NORMAL
[2021-05-01 09:48] LABS: PARTIAL THROMBOPLASTIN TIME 37.5 sec (23.4-31.0); PROTHROMBIN TIME 10.6 sec (9.6-11.0)
[2021-05-01] MEDS: ACETYLCYSTEINE 100MG/ML 10% VIAL 4ML INH SCH (15:48)
[2021-05-01] MEDS: ENOXAPARIN 100MG/ML SYR SUBCUT SCH (16:04)
[2021-05-01] MEDS: FAMOTIDINE 20MG TABLET PO SCH (22:00)
[2021-05-01] MEDS: ONDANSETRON HCL 4MG/2ML INJ IV PRN (22:00)
[2021-05-01] MEDS ORDERED: CEFEPIME 1,000 MG in DEXTROSE 5% WATER 50 ML IV NR (23:00)
[2021-05-02] VITALS (77 sets, daily range): BP systolic 61–154; BP diastolic 36–92
[2021-05-02] MEDS: ACETYLCYSTEINE 100MG/ML 10% VIAL 4ML INH SCH ×4 (00:16→15:45)
[2021-05-02] MEDS: IPRATROPIUM/ALBUTEROL 0.5-3(2.5)MG/3ML NEB HHN SCH ×6 (00:33→20:40)
[2021-05-02] MEDS: BLOOD SUGAR DIAGNOSTIC STRIP TEST SCH ×4 (05:17→17:31)
[2021-05-02] MEDS: FENTANYL CITRATE/PF 2,500 MCG in SODIUM CHLORIDE 0.9% 200 ML IV PRN (05:19)
[2021-05-02] MEDS: CALCIUM ACETATE 667MG CAPSULE PO SCH ×3 (05:43→17:31)
[2021-05-02 05:53] LABS: PHOSPHORUS 5.1 mg/dL (2.5-4.9)
[2021-05-02] MEDS: INSULIN LISPRO 100 UNITS/ML SUBCUT SCH ×3 (06:00→17:31)
[2021-05-02 06:12] LABS: HEMATOCRIT. 28.2 % (36.0-48.0); HEMOGLOBIN. 8.9 g/dL (12.0-16.0); MEAN CORPUSCULAR HEMOGLOBIN 25.6 pg (28.0-32.0); MEAN PLATELET VOLUME 10.8 fl (7.4-10.4); PLATELET 178 x1000/uL (130-400); RED BLOOD CELL COUNT 3.48 mill/uL (4.2-5.4); RED CELL DISTRIBUTION WIDTH 15.7 % (11.6-14.6)
[2021-05-02] MEDS ORDERED: NALOXONE HCL 0.4MG/ML VIAL IV PRN (07:45)
[2021-05-02] MEDS: FOLIC ACID/VITAMIN B COMP W-C TABLET PO SCH (08:53)
[2021-05-02] MEDS: DEXAMETHASONE 10 MG/ML VIAL IV SCH (08:53)
[2021-05-02] MEDS: ASPIRIN 81MG TABLET PO SCH (08:54)
[2021-05-02 09:51] LABS: BG BASE EXCESS -0.1 mmol/L (-2.0-2.0); BG CARBOXYHEMOGLOBIN 0.6 % (0.5-1.5); BG FRACTION INSPIRED OXYGEN 35; BG HCO3 ACT 26.2 mmol/L (22.0-26.0); BG METHEMOGLOBIN 0.1 % (0.0-1.5); BG OXYGEN SATURATION 90.9 % (92.0-98.5); BG OXYHEMOGLOBIN 90.3 % (94.0-97.0); BG PCO2 51.4 mmHg (35.0-45.0); BG PH 7.326 (7.350-7.450); BG PO2 64.3 mmHg (75.0-100.0); BG SAMPLE SITE RIGHT RADIAL; BG TOTAL HEMOGLOBIN 9.1 g/dL (12.0-18.0); BG VENT MODE VENT - PRVC
[2021-05-02 13:03] LABS: PLATELET ESTIMATE NORMAL
[2021-05-02] MEDS: ENOXAPARIN 100MG/ML SYR SUBCUT SCH (16:30)
[2021-05-02] MEDS ORDERED: MORPHINE SULFATE 2 MG/ML CPJ (NOT FOR IM USE) IV PRN (18:00)
[2021-05-02] MEDS ORDERED: LORAZEPAM 2MG/ML CPJ IM PRN (18:00)
[2021-05-02] MEDS: FAMOTIDINE 20MG TABLET PO SCH (22:16)
[2021-05-02] MEDS ORDERED: CEFEPIME 500 MG in DEXTROSE 5% WATER 50 ML IV SCH (23:00)
[2021-05-03] VITALS (61 sets, daily range): BP systolic 110–158; BP diastolic 67–104
[2021-05-03] MEDS: IPRATROPIUM/ALBUTEROL 0.5-3(2.5)MG/3ML NEB HHN SCH ×6 (00:28→21:15)
[2021-05-03 05:19] LABS: HEMATOCRIT. 23.3 % (36.0-48.0); HEMOGLOBIN. 7.7 g/dL (12.0-16.0); MEAN CORPUSCULAR VOLUME 79.1 fL (81.0-99.0); MEAN PLATELET VOLUME 10.5 fl (7.4-10.4); PLATELET 142 x1000/uL (130-400); RED BLOOD CELL COUNT 2.95 mill/uL (4.2-5.4); RED CELL DISTRIBUTION WIDTH 15.5 % (11.6-14.6)
[2021-05-03] MEDS: INSULIN LISPRO 100 UNITS/ML SUBCUT SCH ×5 (06:00→23:56)
[2021-05-03] MEDS: BLOOD SUGAR DIAGNOSTIC STRIP TEST SCH ×5 (06:20→23:55)
[2021-05-03] MEDS: CALCIUM ACETATE 667MG CAPSULE PO SCH ×3 (06:20→18:06)
[2021-05-03] MEDS: PHENYLEPHRINE 100 MG in DEXT 5% WATER 240 ML IV PRN ×2 (06:21→13:31)
[2021-05-03] MEDS: ACETYLCYSTEINE 100MG/ML 10% VIAL 4ML INH SCH ×2 (08:25→16:06)
[2021-05-03 08:32] LABS: BG BASE EXCESS 3.5 mmol/L (-2.0-2.0); BG CARBOXYHEMOGLOBIN 0.3 % (0.5-1.5); BG DEOXYHEMOGLOBIN 4.8 % (0.0-5.0); BG HCO3 ACT 28.3 mmol/L (22.0-26.0); BG METHEMOGLOBIN 0.4 % (0.0-1.5); BG OXYGEN SATURATION 95.2 % (92.0-98.5); BG OXYHEMOGLOBIN 94.5 % (94.0-97.0); BG PCO2 44.2 mmHg (35.0-45.0); BG PH 7.424 (7.350-7.450); BG PO2 79.6 mmHg (75.0-100.0); BG SAMPLE SITE RIGHT RADIAL; BG TOTAL HEMOGLOBIN 7.8 g/dL (12.0-18.0); BG VENT MODE VENT - SIMV
[2021-05-03] MEDS: ASPIRIN 81MG TABLET PO SCH (09:29)
[2021-05-03] MEDS: FOLIC ACID/VITAMIN B COMP W-C TABLET PO SCH (09:29)
[2021-05-03] MEDS: DEXAMETHASONE 10 MG/ML VIAL IV SCH (09:29)
[2021-05-03 09:57] LABS: PLATELET ESTIMATE NORMAL
[2021-05-03] MEDS: MIDODRINE HCL 5MG TABLET PO SCH ×2 (13:00→17:00)
[2021-05-03] MEDS: MEROPENEM 1,000 MG in SODIUM CHLORIDE 0.9% 100 ML IV SCH (18:06)
[2021-05-03] MEDS ORDERED: LACTULOSE 20G/30ML UDC PO NR (19:15)
[2021-05-03] MEDS: FAMOTIDINE 20MG TABLET PO SCH (21:57)
[2021-05-04] VITALS (37 sets, daily range): BP systolic 115–176; BP diastolic 68–110
[2021-05-04 00:15] LABS: HEPATITIS B SURFACE ANTIGEN NEGATIVE
[2021-05-04] MEDS: ACETYLCYSTEINE 100MG/ML 10% VIAL 4ML INH SCH ×2 (00:31→08:11)
[2021-05-04] MEDS: IPRATROPIUM/ALBUTEROL 0.5-3(2.5)MG/3ML NEB HHN SCH ×6 (00:31→20:22)
[2021-05-04 05:17] LABS: HEMATOCRIT. 23.4 % (36.0-48.0); HEMOGLOBIN. 7.6 g/dL (12.0-16.0); MEAN CORPUSCULAR HEMOGLOBIN 25.9 pg (28.0-32.0); MEAN CORPUSCULAR VOLUME 79.6 fL (81.0-99.0); MEAN PLATELET VOLUME 10.8 fl (7.4-10.4); PLATELET 129 x1000/uL (130-400); RED BLOOD CELL COUNT 2.94 mill/uL (4.2-5.4); RED CELL DISTRIBUTION WIDTH 15.4 % (11.6-14.6)
[2021-05-04] MEDS: BLOOD SUGAR DIAGNOSTIC STRIP TEST SCH ×3 (05:55→17:41)
[2021-05-04] MEDS: INSULIN LISPRO 100 UNITS/ML SUBCUT SCH ×3 (05:56→17:42)
[2021-05-04] MEDS: CALCIUM ACETATE 667MG CAPSULE PO SCH ×3 (06:00→17:41)
[2021-05-04] MEDS: ASPIRIN 81MG TABLET PO SCH (08:33)
[2021-05-04] MEDS: DEXAMETHASONE 10 MG/ML VIAL IV SCH (08:33)
[2021-05-04] MEDS: FOLIC ACID/VITAMIN B COMP W-C TABLET PO SCH (08:33)
[2021-05-04] MEDS: MIDODRINE HCL 5MG TABLET PO SCH (08:35)
[2021-05-04 12:11] LABS: PLATELET ESTIMATE NORMAL
[2021-05-04] MEDS: CLONIDINE 0.1MG TABLET PO PRN (12:59)
[2021-05-04] MEDS: MEROPENEM 1,000 MG in SODIUM CHLORIDE 0.9% 100 ML IV SCH (17:42)
[2021-05-04] MEDS: FAMOTIDINE 20MG TABLET PO SCH (21:23)
[2021-05-04] MEDS: BISACODYL 10MG SUPP PR PRN (21:24)
[2021-05-04] MEDS: ONDANSETRON HCL 4MG/2ML INJ IV PRN (21:24)
[2021-05-05] VITALS (69 sets, daily range): BP systolic 97–171; BP diastolic 67–111
[2021-05-05] MEDS: BLOOD SUGAR DIAGNOSTIC STRIP TEST SCH ×5 (00:08→23:34)
[2021-05-05] MEDS: ACETYLCYSTEINE 100MG/ML 10% VIAL 4ML INH SCH ×3 (00:13→16:22)
[2021-05-05] MEDS: IPRATROPIUM/ALBUTEROL 0.5-3(2.5)MG/3ML NEB HHN SCH ×7 (00:14→20:50)
[2021-05-05 05:01] LABS: HEMATOCRIT. 22.5 % (36.0-48.0); HEMOGLOBIN. 7.4 g/dL (12.0-16.0); MEAN CORPUSCULAR HEMOGLOBIN 26.1 pg (28.0-32.0); MEAN CORPUSCULAR VOLUME 79.4 fL (81.0-99.0); MEAN PLATELET VOLUME 11.1 fl (7.4-10.4); PLATELET 143 x1000/uL (130-400); RED BLOOD CELL COUNT 2.83 mill/uL (4.2-5.4); RED CELL DISTRIBUTION WIDTH 15.7 % (11.6-14.6)
[2021-05-05] MEDS: INSULIN LISPRO 100 UNITS/ML SUBCUT SCH ×5 (06:00→23:34)
[2021-05-05] MEDS: CALCIUM ACETATE 667MG CAPSULE PO SCH ×3 (06:09→17:11)
[2021-05-05] MEDS ORDERED: NALOXONE HCL 0.4MG/ML VIAL IV PRN (07:45)
[2021-05-05] MEDS: DEXAMETHASONE 10 MG/ML VIAL IV SCH (08:32)
[2021-05-05] MEDS: ASPIRIN 81MG TABLET PO SCH (08:32)
[2021-05-05] MEDS: FOLIC ACID/VITAMIN B COMP W-C TABLET PO SCH (08:33)
[2021-05-05] MEDS: MIDODRINE HCL 5MG TABLET PO SCH ×3 (08:33→17:00)
[2021-05-05 10:45] LABS: BG BASE EXCESS 1.3 mmol/L (-2.0-2.0); BG CARBOXYHEMOGLOBIN 0.2 % (0.5-1.5); BG DEOXYHEMOGLOBIN 1.6 % (0.0-5.0); BG FRACTION INSPIRED OXYGEN 35; BG HCO3 ACT 25.3 mmol/L (22.0-26.0); BG METHEMOGLOBIN 0.1 % (0.0-1.5); BG OXYGEN SATURATION 98.4 % (92.0-98.5); BG OXYHEMOGLOBIN 98.1 % (94.0-97.0); BG PCO2 37.2 mmHg (35.0-45.0); BG PO2 135.5 mmHg (75.0-100.0); BG SAMPLE SITE RIGHT RADIAL; BG TOTAL HEMOGLOBIN 7.8 g/dL (12.0-18.0); BG VENT MODE VENT - SIMV
[2021-05-05 13:12] LABS: PLATELET ESTIMATE NORMAL
[2021-05-05] MEDS: MEROPENEM 1,000 MG in SODIUM CHLORIDE 0.9% 100 ML IV SCH (16:55)
[2021-05-05 18:05] LABS: BG BASE EXCESS 2.7 mmol/L (-2.0-2.0); BG CARBOXYHEMOGLOBIN 0.2 % (0.5-1.5); BG DEOXYHEMOGLOBIN 6.5 % (0.0-5.0); BG FRACTION INSPIRED OXYGEN 35; BG HCO3 ACT 26.4 mmol/L (22.0-26.0); BG METHEMOGLOBIN 0.2 % (0.0-1.5); BG OXYGEN SATURATION 93.5 % (92.0-98.5); BG OXYHEMOGLOBIN 93.1 % (94.0-97.0); BG PCO2 36.2 mmHg (35.0-45.0); BG PO2 65.8 mmHg (75.0-100.0); BG SAMPLE SITE RIGHT RADIAL; BG TOTAL HEMOGLOBIN 7.8 g/dL (12.0-18.0); BG VENT MODE VENT - AC
[2021-05-05] MEDS: FAMOTIDINE 20MG TABLET PO SCH (20:20)
[2021-05-05] MEDS: CLONIDINE 0.1MG TABLET PO PRN (22:55)
[2021-05-05 23:48] LABS: T4 FREE 0.52 ng/dL (0.76-1.46)
[2021-05-06] VITALS (95 sets, daily range): BP systolic 91–166; BP diastolic 62–106
[2021-05-06 00:02] LABS: FOLIC ACID (FOLATE) SERUM > 20.00 ng/mL (>5.38)
[2021-05-06 00:12] LABS: VITAMIN B12 SERUM 1066 pg/mL (211-911)
[2021-05-06] MEDS: IPRATROPIUM/ALBUTEROL 0.5-3(2.5)MG/3ML NEB HHN SCH ×6 (00:14→20:30)
[2021-05-06] MEDS: ACETYLCYSTEINE 100MG/ML 10% VIAL 4ML INH SCH ×2 (00:14→08:39)
[2021-05-06] MEDS: FENTANYL CITRATE/PF 2,500 MCG in SODIUM CHLORIDE 0.9% 200 ML IV PRN (02:38)
[2021-05-06 05:41] LABS: HEMATOCRIT. 23.9 % (36.0-48.0); HEMOGLOBIN. 7.8 g/dL (12.0-16.0); MEAN CORPUSCULAR HEMOGLOBIN 26.1 pg (28.0-32.0); MEAN CORPUSCULAR VOLUME 79.5 fL (81.0-99.0); MEAN PLATELET VOLUME 10.9 fl (7.4-10.4); PLATELET 157 x1000/uL (130-400); RED CELL DISTRIBUTION WIDTH 15.6 % (11.6-14.6)
[2021-05-06] MEDS: INSULIN LISPRO 100 UNITS/ML SUBCUT SCH ×3 (06:00→18:00)
[2021-05-06] MEDS: CALCIUM ACETATE 667MG CAPSULE PO SCH ×3 (06:06→17:08)
[2021-05-06] MEDS: BLOOD SUGAR DIAGNOSTIC STRIP TEST SCH ×3 (06:07→18:28)
[2021-05-06] MEDS: MIDODRINE HCL 5MG TABLET PO SCH ×3 (09:00→17:05)
[2021-05-06] MEDS: FOLIC ACID/VITAMIN B COMP W-C TABLET PO SCH (10:06)
[2021-05-06] MEDS: DEXAMETHASONE 10 MG/ML VIAL IV SCH (10:06)
[2021-05-06 16:03] LABS: PLATELET ESTIMATE NORMAL
[2021-05-06] MEDS: MEROPENEM 1,000 MG in SODIUM CHLORIDE 0.9% 100 ML IV SCH (17:09)
[2021-05-06] MEDS: FAMOTIDINE 20MG TABLET PO SCH (21:35)
[2021-05-07] VITALS (100 sets, daily range): BP systolic 91–165; BP diastolic 54–96
[2021-05-07] MEDS: IPRATROPIUM/ALBUTEROL 0.5-3(2.5)MG/3ML NEB HHN SCH ×6 (00:26→20:12)
[2021-05-07 05:45] LABS: HEMATOCRIT. 24.7 % (36.0-48.0); MEAN CORPUSCULAR HEMOGLOBIN 26.2 pg (28.0-32.0); MEAN CORPUSCULAR VOLUME 81.2 fL (81.0-99.0); RED BLOOD CELL COUNT 3.04 mill/uL (4.2-5.4); RED CELL DISTRIBUTION WIDTH 15.8 % (11.6-14.6)
[2021-05-07] MEDS: INSULIN LISPRO 100 UNITS/ML SUBCUT SCH ×4 (06:00→17:46)
[2021-05-07] MEDS: BLOOD SUGAR DIAGNOSTIC STRIP TEST SCH ×5 (06:00→23:19)
[2021-05-07] MEDS: CALCIUM ACETATE 667MG CAPSULE PO SCH ×3 (06:08→17:16)
[2021-05-07] MEDS: ACETYLCYSTEINE 100MG/ML 10% VIAL 4ML INH SCH (07:47)
[2021-05-07 11:07] LABS: BG BASE EXCESS 2.5 mmol/L (-2.0-2.0); BG CARBOXYHEMOGLOBIN 0.3 % (0.5-1.5); BG DEOXYHEMOGLOBIN 3.9 % (0.0-5.0); BG FRACTION INSPIRED OXYGEN 35; BG HCO3 ACT 27.2 mmol/L (22.0-26.0); BG OXYGEN SATURATION 96.1 % (92.0-98.5); BG OXYHEMOGLOBIN 95.8 % (94.0-97.0); BG PCO2 42.7 mmHg (35.0-45.0); BG PH 7.422 (7.350-7.450); BG PO2 83.8 mmHg (75.0-100.0); BG SAMPLE SITE LEFT RADIAL; BG TOTAL RESPIRATORY RATE 13 b/min; BG VENT MODE VENT - AC
[2021-05-07] MEDS: FENTANYL CITRATE/PF 2,500 MCG in SODIUM CHLORIDE 0.9% 200 ML IV PRN (11:23)
[2021-05-07] MEDS: MIDODRINE HCL 5MG TABLET PO SCH ×3 (11:23→17:16)
[2021-05-07] MEDS: DEXAMETHASONE 10 MG/ML VIAL IV SCH (11:23)
[2021-05-07] MEDS: FOLIC ACID/VITAMIN B COMP W-C TABLET PO SCH (11:23)
[2021-05-07 11:33] LABS: PLATELET 159 x1000/uL (130-400)
[2021-05-07] MEDS: MEROPENEM 1,000 MG in SODIUM CHLORIDE 0.9% 100 ML IV SCH (17:16)
[2021-05-07] MEDS: DOCUSATE SODIUM SUGAR FREE 100MG/10ML UDC NG SCH (17:46)
[2021-05-07] MEDS: FAMOTIDINE 20MG TABLET PO SCH (21:04)
[2021-05-08] VITALS (94 sets, daily range): BP systolic 103–151; BP diastolic 64–102
[2021-05-08] MEDS: IPRATROPIUM/ALBUTEROL 0.5-3(2.5)MG/3ML NEB HHN SCH ×6 (00:23→21:07)
[2021-05-08 05:28] LABS: HEMATOCRIT. 23.1 % (36.0-48.0); HEMOGLOBIN. 7.6 g/dL (12.0-16.0); MEAN CORPUSCULAR HEMOGLOBIN 26.3 pg (28.0-32.0); MEAN CORPUSCULAR VOLUME 80.2 fL (81.0-99.0); PLATELET 145 x1000/uL (130-400); RED BLOOD CELL COUNT 2.88 mill/uL (4.2-5.4); RED CELL DISTRIBUTION WIDTH 15.6 % (11.6-14.6)
[2021-05-08 05:44] LABS: PHOSPHORUS 3.8 mg/dL (2.5-4.9)
[2021-05-08] MEDS: INSULIN LISPRO 100 UNITS/ML SUBCUT SCH ×5 (06:00→23:11)
[2021-05-08] MEDS: BLOOD SUGAR DIAGNOSTIC STRIP TEST SCH ×4 (06:39→23:05)
[2021-05-08] MEDS: CALCIUM ACETATE 667MG CAPSULE PO SCH ×3 (06:57→17:58)
[2021-05-08] MEDS: LACTULOSE 20G/30ML UDC PO PRN (08:58)
[2021-05-08] MEDS: DEXAMETHASONE 10 MG/ML VIAL IV SCH (08:58)
[2021-05-08] MEDS: DOCUSATE SODIUM SUGAR FREE 100MG/10ML UDC NG SCH (08:58)
[2021-05-08] MEDS: FOLIC ACID/VITAMIN B COMP W-C TABLET PO SCH (08:59)
[2021-05-08] MEDS: MIDODRINE HCL 5MG TABLET PO SCH ×3 (08:59→17:58)
[2021-05-08 10:28] LABS: BG BASE EXCESS 4.5 mmol/L (-2.0-2.0); BG DEOXYHEMOGLOBIN 1.9 % (0.0-5.0); BG FRACTION INSPIRED OXYGEN 35; BG HCO3 ACT 29.4 mmol/L (22.0-26.0); BG METHEMOGLOBIN 0.3 % (0.0-1.5); BG OXYGEN SATURATION 98.1 % (92.0-98.5); BG OXYHEMOGLOBIN 97.8 % (94.0-97.0); BG PCO2 45.7 mmHg (35.0-45.0); BG PH 7.426 (7.350-7.450); BG PO2 116.9 mmHg (75.0-100.0); BG SAMPLE SITE LEFT RADIAL; BG TOTAL HEMOGLOBIN 8.3 g/dL (12.0-18.0); BG TOTAL RESPIRATORY RATE 12 b/min; BG VENT MODE VENT - AC
[2021-05-08 13:27] LABS: PLATELET ESTIMATE NORMAL
[2021-05-08] MEDS: SULFAMETHOXAZOLE/TRIMETHOPRIM 200-40 MG/5ML 5ML ORAL SYR GT SCH ×2 (15:20→23:12)
[2021-05-08] MEDS ORDERED: DILTIAZEM HCL 5MG/ML 5ML VIAL IV PRN (19:00)
[2021-05-08] MEDS ORDERED: DILTIAZEM HCL 5MG/ML 5ML VIAL IV ONE (19:00)
[2021-05-08] MEDS: FAMOTIDINE 20MG TABLET PO SCH (20:39)
[2021-05-09] VITALS (95 sets, daily range): BP systolic 115–150; BP diastolic 70–96
[2021-05-09] MEDS: IPRATROPIUM/ALBUTEROL 0.5-3(2.5)MG/3ML NEB HHN SCH ×6 (00:30→20:29)
[2021-05-09] MEDS: INSULIN LISPRO 100 UNITS/ML SUBCUT SCH ×4 (05:05→23:15)
[2021-05-09] MEDS: BLOOD SUGAR DIAGNOSTIC STRIP TEST SCH ×4 (05:05→23:15)
[2021-05-09 05:27] LABS: HEMATOCRIT. 24.2 % (36.0-48.0); MEAN CORPUSCULAR VOLUME 78.8 fL (81.0-99.0); MEAN PLATELET VOLUME 10.5 fl (7.4-10.4); PLATELET 156 x1000/uL (130-400); RED BLOOD CELL COUNT 3.07 mill/uL (4.2-5.4); RED CELL DISTRIBUTION WIDTH 15.4 % (11.6-14.6)
[2021-05-09 05:30] LABS: PROTHROMBIN TIME 10.9 sec (9.6-11.0)
[2021-05-09] MEDS: CALCIUM ACETATE 667MG CAPSULE PO SCH ×4 (07:00→18:03)
[2021-05-09] MEDS ORDERED: DEXT 5%/0.45% NACL 1000ML 1,000 ML IV SCH (07:30)
[2021-05-09] MEDS ORDERED: KCL 20MEQ/100ML PREMIX 100 ML IV NR (08:30)
[2021-05-09] MEDS: DEXAMETHASONE 10 MG/ML VIAL IV SCH (08:52)
[2021-05-09] MEDS: DOCUSATE SODIUM SUGAR FREE 100MG/10ML UDC NG SCH (09:45)
[2021-05-09] MEDS: MIDODRINE HCL 5MG TABLET PO SCH ×3 (09:46→18:03)
[2021-05-09] MEDS: FOLIC ACID/VITAMIN B COMP W-C TABLET PO SCH (09:46)
[2021-05-09] MEDS ORDERED: LIDOCAINE HCL/EPINEPHRINE 1%-EPI 1:100,000 20 ML VIAL ONE (09:56)
[2021-05-09] MEDS ORDERED: MIDAZOLAM HCL 2 MG/2 ML VIAL ONE (10:02)
[2021-05-09] MEDS ORDERED: FENTANYL CITRATE/PF 50MCG/ML 2ML VIAL ONE (10:02)
[2021-05-09] MEDS: SULFAMETHOXAZOLE/TRIMETHOPRIM 200-40 MG/5ML 5ML ORAL SYR GT SCH ×2 (11:02→20:11)
[2021-05-09] MEDS: LACTULOSE 20G/30ML UDC PO PRN (11:02)
[2021-05-09] MEDS ORDERED: DILTIAZEM HCL 30MG TABLET PO SCH (14:00)
[2021-05-09] MEDS ORDERED: DILTIAZEM HCL 30MG TABLET PO NR (14:00)
[2021-05-09 14:58] LABS: PLATELET ESTIMATE NORMAL
[2021-05-09] MEDS: DILTIAZEM HCL 30MG TABLET PO SCH ×2 (18:04→23:15)
[2021-05-09] MEDS: FAMOTIDINE 20MG TABLET PO SCH (20:13)
[2021-05-10] VITALS (64 sets, daily range): BP systolic 110–145; BP diastolic 68–93
[2021-05-10] MEDS: IPRATROPIUM/ALBUTEROL 0.5-3(2.5)MG/3ML NEB HHN SCH ×6 (00:32→20:55)
[2021-05-10 05:05] LABS: HEMATOCRIT. 24.1 % (36.0-48.0); HEMOGLOBIN. 7.4 g/dL (12.0-16.0); MEAN CORPUSCULAR HEMOGLOBIN 24.8 pg (28.0-32.0); MEAN CORPUSCULAR VOLUME 80.9 fL (81.0-99.0); MEAN PLATELET VOLUME 10.8 fl (7.4-10.4); PLATELET 170 x1000/uL (130-400); RED BLOOD CELL COUNT 2.98 mill/uL (4.2-5.4)
[2021-05-10] MEDS: BLOOD SUGAR DIAGNOSTIC STRIP TEST SCH ×3 (05:57→17:30)
[2021-05-10] MEDS: DILTIAZEM HCL 30MG TABLET PO SCH ×3 (05:57→17:41)
[2021-05-10] MEDS: CALCIUM ACETATE 667MG CAPSULE PO SCH ×3 (05:57→17:43)
[2021-05-10] MEDS: INSULIN LISPRO 100 UNITS/ML SUBCUT SCH ×3 (05:58→17:42)
[2021-05-10] MEDS ORDERED: POTASSIUM CHLORIDE 20MEQ/PACKET PO SCH (06:15)
[2021-05-10] MEDS: LACTULOSE 20G/30ML UDC PO PRN (09:09)
[2021-05-10] MEDS: DEXAMETHASONE 10 MG/ML VIAL IV SCH (09:09)
[2021-05-10] MEDS: DOCUSATE SODIUM SUGAR FREE 100MG/10ML UDC NG SCH (09:09)
[2021-05-10] MEDS: FOLIC ACID/VITAMIN B COMP W-C TABLET PO SCH (09:09)
[2021-05-10] MEDS: SULFAMETHOXAZOLE/TRIMETHOPRIM 200-40 MG/5ML 5ML ORAL SYR GT SCH ×2 (09:10→21:42)
[2021-05-10] MEDS: MIDODRINE HCL 5MG TABLET PO SCH (09:10)
[2021-05-10 09:14] LABS: BG BASE EXCESS 4.1 mmol/L (-2.0-2.0); BG CARBOXYHEMOGLOBIN 0.4 % (0.5-1.5); BG DEOXYHEMOGLOBIN 1.7 % (0.0-5.0); BG FRACTION INSPIRED OXYGEN 30; BG HCO3 ACT 27.4 mmol/L (22.0-26.0); BG METHEMOGLOBIN 0.3 % (0.0-1.5); BG OXYGEN SATURATION 98.3 % (92.0-98.5); BG OXYHEMOGLOBIN 97.6 % (94.0-97.0); BG PCO2 35.7 mmHg (35.0-45.0); BG PH 7.503 (7.350-7.450); BG PO2 112.8 mmHg (75.0-100.0); BG SAMPLE SITE RIGHT RADIAL; BG VENT MODE VENT - AC
[2021-05-10 10:22] LABS: PLATELET ESTIMATE NORMAL
[2021-05-10] MEDS ORDERED: MORPHINE SULFATE 2 MG/ML CPJ (NOT FOR IM USE) IV PRN (12:30)
[2021-05-10] MEDS ORDERED: NALOXONE HCL 0.4MG/ML VIAL IV PRN (12:45)
[2021-05-10] MEDS: FAMOTIDINE 20MG TABLET PO SCH (21:41)
[2021-05-11] VITALS (12 sets, daily range): BP systolic 107–133; BP diastolic 60–86
[2021-05-11] MEDS: BLOOD SUGAR DIAGNOSTIC STRIP TEST SCH ×5 (00:05→23:36)
[2021-05-11] MEDS: INSULIN LISPRO 100 UNITS/ML SUBCUT SCH ×5 (00:05→23:36)
[2021-05-11] MEDS: IPRATROPIUM/ALBUTEROL 0.5-3(2.5)MG/3ML NEB HHN SCH ×6 (00:07→20:51)
[2021-05-11] MEDS: DILTIAZEM HCL 30MG TABLET PO SCH ×5 (00:09→23:35)
[2021-05-11 06:13] LABS: HEMATOCRIT. 24.9 % (36.0-48.0); HEMOGLOBIN. 7.8 g/dL (12.0-16.0); MEAN CORPUSCULAR HEMOGLOBIN 25.4 pg (28.0-32.0); MEAN PLATELET VOLUME 11.2 fl (7.4-10.4); PLATELET 182 x1000/uL (130-400); RED BLOOD CELL COUNT 3.07 mill/uL (4.2-5.4); RED CELL DISTRIBUTION WIDTH 16.2 % (11.6-14.6)
[2021-05-11] MEDS: CALCIUM ACETATE 667MG CAPSULE PO SCH ×3 (08:00→18:23)
[2021-05-11] MEDS: DOCUSATE SODIUM SUGAR FREE 100MG/10ML UDC NG SCH (09:00)
[2021-05-11] MEDS: FOLIC ACID/VITAMIN B COMP W-C TABLET PO SCH (09:00)
[2021-05-11 11:11] LABS: PLATELET ESTIMATE NORMAL
[2021-05-11 11:17] LABS: TOTAL IRON BINDING CAPACITY 166 ug/dL (250-450)
[2021-05-11] MEDS: SULFAMETHOXAZOLE/TRIMETHOPRIM 200-40 MG/5ML 5ML ORAL SYR GT SCH ×2 (12:19→20:31)
[2021-05-11] MEDS: DEXAMETHASONE 10 MG/ML VIAL IV SCH (12:20)
[2021-05-11] MEDS ORDERED: BISACODYL 10MG SUPP PR PRN (12:45)
[2021-05-11] MEDS ORDERED: BISACODYL 10MG SUPP PR SCH (13:00)
[2021-05-11] MEDS: ENOXAPARIN 100MG/ML SYR SUBCUT SCH (15:59)
[2021-05-11] MEDS: FAMOTIDINE 20MG TABLET PO SCH (20:30)
[2021-05-12] VITALS (12 sets, daily range): BP systolic 111–132; BP diastolic 66–83
[2021-05-12] MEDS: IPRATROPIUM/ALBUTEROL 0.5-3(2.5)MG/3ML NEB HHN SCH ×6 (00:51→21:14)
[2021-05-12 05:49] LABS: HEMOGLOBIN. 7.7 g/dL (12.0-16.0); MEAN CORPUSCULAR VOLUME 81.3 fL (81.0-99.0); PLATELET 164 x1000/uL (130-400); RED BLOOD CELL COUNT 2.95 mill/uL (4.2-5.4); RED CELL DISTRIBUTION WIDTH 16.4 % (11.6-14.6)
[2021-05-12 05:52] LABS: PROTHROMBIN TIME 10.7 sec (9.6-11.0)
[2021-05-12] MEDS: DILTIAZEM HCL 30MG TABLET PO SCH ×4 (06:00→23:50)
[2021-05-12] MEDS: INSULIN LISPRO 100 UNITS/ML SUBCUT SCH ×4 (06:00→23:51)
[2021-05-12] MEDS: BLOOD SUGAR DIAGNOSTIC STRIP TEST SCH ×4 (06:22→23:51)
[2021-05-12] MEDS: ENOXAPARIN 100MG/ML SYR SUBCUT SCH (07:54)
[2021-05-12] MEDS: CALCIUM ACETATE 667MG CAPSULE PO SCH ×3 (08:00→18:03)
[2021-05-12] MEDS ORDERED: CEFAZOLIN 1000MG PREMIX 50 ML IV SCH (10:00)
[2021-05-12] MEDS ORDERED: FUROSEMIDE 40MG/4ML VIAL IVP NR (10:30)
[2021-05-12] MEDS ORDERED: FENTANYL CITRATE/PF 50MCG/ML 2ML VIAL ONE (11:48)
[2021-05-12] MEDS ORDERED: MIDAZOLAM HCL 5 MG/5 ML VIAL ONE (11:48)
[2021-05-12] MEDS ORDERED: MIDAZOLAM HCL 2 MG/2 ML VIAL IV PRN (12:18)
[2021-05-12 13:19] LABS: PLATELET ESTIMATE NORMAL
[2021-05-12] MEDS: DOCUSATE SODIUM SUGAR FREE 100MG/10ML UDC NG SCH (14:06)
[2021-05-12] MEDS: SULFAMETHOXAZOLE/TRIMETHOPRIM 200-40 MG/5ML 5ML ORAL SYR GT SCH ×2 (14:07→21:01)
[2021-05-12] MEDS: FOLIC ACID/VITAMIN B COMP W-C TABLET PO SCH (14:08)
[2021-05-12] MEDS: DEXAMETHASONE 10 MG/ML VIAL IV SCH (14:08)
[2021-05-12] MEDS: BISACODYL 10MG SUPP PR PRN (18:04)
[2021-05-12] MEDS: ACETAMINOPHEN 650MG/20.3ML UDC GT PRN (18:15)
[2021-05-12] MEDS: FAMOTIDINE 20MG TABLET PO SCH (21:01)
[2021-05-13] VITALS (12 sets, daily range): BP systolic 79–130; BP diastolic 62–79
[2021-05-13] MEDS: IPRATROPIUM/ALBUTEROL 0.5-3(2.5)MG/3ML NEB HHN SCH ×6 (01:04→20:05)
[2021-05-13] MEDS: INSULIN LISPRO 100 UNITS/ML SUBCUT SCH ×3 (06:00→19:06)
[2021-05-13] MEDS: DILTIAZEM HCL 30MG TABLET PO SCH ×2 (06:01→14:20)
[2021-05-13] MEDS: BLOOD SUGAR DIAGNOSTIC STRIP TEST SCH ×3 (06:02→18:53)
[2021-05-13 06:32] LABS: HEMOGLOBIN. 7.2 g/dL (12.0-16.0); MEAN CORPUSCULAR HEMOGLOBIN 26.1 pg (28.0-32.0); MEAN CORPUSCULAR VOLUME 80.1 fL (81.0-99.0); MEAN PLATELET VOLUME 10.9 fl (7.4-10.4); PLATELET 170 x1000/uL (130-400); RED BLOOD CELL COUNT 2.75 mill/uL (4.2-5.4); RED CELL DISTRIBUTION WIDTH 16.8 % (11.6-14.6)
[2021-05-13] MEDS: DEXAMETHASONE 10 MG/ML VIAL IV SCH (10:09)
[2021-05-13] MEDS: CALCIUM ACETATE 667MG CAPSULE PO SCH ×3 (10:09→19:03)
[2021-05-13] MEDS: FOLIC ACID/VITAMIN B COMP W-C TABLET PO SCH (10:09)
[2021-05-13] MEDS: MIDODRINE HCL 5MG TABLET PO PRN (10:10)
[2021-05-13] MEDS: DOCUSATE SODIUM SUGAR FREE 100MG/10ML UDC NG SCH (10:11)
[2021-05-13] MEDS: SULFAMETHOXAZOLE/TRIMETHOPRIM 200-40 MG/5ML 5ML ORAL SYR GT SCH ×2 (10:37→21:58)
[2021-05-13 12:08] LABS: PLATELET ESTIMATE NORMAL
[2021-05-13] MEDS ORDERED: FUROSEMIDE 40MG/4ML VIAL IVP NR (17:15)
[2021-05-13] MEDS: ENOXAPARIN 100MG/ML SYR SUBCUT SCH (19:03)
[2021-05-13] MEDS: DILTIAZEM HCL 60MG TABLET PO SCH (19:03)
[2021-05-13] MEDS: FAMOTIDINE 20MG TABLET PO SCH (21:58)
[2021-05-14] VITALS (13 sets, daily range): BP systolic 117–134; BP diastolic 67–79
[2021-05-14] MEDS: IPRATROPIUM/ALBUTEROL 0.5-3(2.5)MG/3ML NEB HHN SCH ×6 (00:59→20:04)
[2021-05-14] MEDS: DILTIAZEM HCL 60MG TABLET PO SCH ×4 (02:00→18:16)
[2021-05-14] MEDS: INSULIN LISPRO 100 UNITS/ML SUBCUT SCH ×4 (02:01→18:00)
[2021-05-14] MEDS: BLOOD SUGAR DIAGNOSTIC STRIP TEST SCH ×4 (02:02→18:00)
[2021-05-14 04:59] LABS: HEMATOCRIT. 23.5 % (36.0-48.0); HEMOGLOBIN. 7.4 g/dL (12.0-16.0); MEAN CORPUSCULAR HEMOGLOBIN 25.8 pg (28.0-32.0); MEAN CORPUSCULAR VOLUME 81.9 fL (81.0-99.0); MEAN PLATELET VOLUME 11.4 fl (7.4-10.4); PLATELET 211 x1000/uL (130-400); RED BLOOD CELL COUNT 2.87 mill/uL (4.2-5.4); RED CELL DISTRIBUTION WIDTH 16.7 % (11.6-14.6)
[2021-05-14] MEDS: ENOXAPARIN 100MG/ML SYR SUBCUT SCH ×2 (05:49→16:31)
[2021-05-14] MEDS: DOCUSATE SODIUM SUGAR FREE 100MG/10ML UDC NG SCH (09:28)
[2021-05-14] MEDS: FOLIC ACID/VITAMIN B COMP W-C TABLET PO SCH (09:28)
[2021-05-14] MEDS: CALCIUM ACETATE 667MG CAPSULE PO SCH ×3 (09:28→18:16)
[2021-05-14] MEDS: SULFAMETHOXAZOLE/TRIMETHOPRIM 200-40 MG/5ML 5ML ORAL SYR GT SCH (09:29)
[2021-05-14] MEDS: FUROSEMIDE 40MG/4ML VIAL IVP SCH (09:52)
[2021-05-14] MEDS: MIDODRINE HCL 5MG TABLET PO PRN (12:56)
[2021-05-14] MEDS: LACTULOSE 20G/30ML UDC PO PRN (15:34)
[2021-05-14 16:35] LABS: PLATELET ESTIMATE NORMAL
[2021-05-14] MEDS: FAMOTIDINE 20MG TABLET PO SCH (22:24)
[2021-05-15] VITALS (15 sets, daily range): BP systolic 117–137; BP diastolic 68–87
[2021-05-15] MEDS: IPRATROPIUM/ALBUTEROL 0.5-3(2.5)MG/3ML NEB HHN SCH ×6 (00:21→20:58)
[2021-05-15] MEDS: DILTIAZEM HCL 60MG TABLET PO SCH ×5 (02:17→23:57)
[2021-05-15] MEDS: ACETAMINOPHEN 650MG/20.3ML UDC GT PRN (02:18)
[2021-05-15] MEDS: INSULIN LISPRO 100 UNITS/ML SUBCUT SCH ×5 (05:20→23:56)
[2021-05-15] MEDS: BLOOD SUGAR DIAGNOSTIC STRIP TEST SCH ×5 (05:20→23:56)
[2021-05-15 07:14] LABS: HEMATOCRIT. 21.7 % (36.0-48.0); MEAN CORPUSCULAR HEMOGLOBIN 25.9 pg (28.0-32.0); MEAN CORPUSCULAR VOLUME 83.4 fL (81.0-99.0); MEAN PLATELET VOLUME 11.6 fl (7.4-10.4); PLATELET 206 x1000/uL (130-400); RED BLOOD CELL COUNT 2.61 mill/uL (4.2-5.4); RED CELL DISTRIBUTION WIDTH 17.2 % (11.6-14.6)
[2021-05-15 08:10] LABS: HEMOGLOBIN. 6.7 g/dL (12.0-16.0)
[2021-05-15] MEDS: FOLIC ACID/VITAMIN B COMP W-C TABLET PO SCH (08:59)
[2021-05-15] MEDS: FUROSEMIDE 40MG/4ML VIAL IVP SCH (08:59)
[2021-05-15] MEDS: CALCIUM ACETATE 667MG CAPSULE PO SCH ×3 (08:59→17:32)
[2021-05-15] MEDS: DOCUSATE SODIUM SUGAR FREE 100MG/10ML UDC NG SCH (08:59)
[2021-05-15] MEDS ORDERED: SODIUM POLYSTYRENE SULFONATE 15 G/60 ML BOT PO SCH (11:00)
[2021-05-15 14:20] LABS: PLATELET ESTIMATE NORMAL
[2021-05-15 15:47] LABS: HEMATOCRIT. 25.6 % (36.0-48.0); HEMOGLOBIN. 8.4 g/dL (12.0-16.0); MEAN CORPUSCULAR HEMOGLOBIN 27.3 pg (28.0-32.0); MEAN CORPUSCULAR VOLUME 82.9 fL (81.0-99.0); MEAN PLATELET VOLUME 10.9 fl (7.4-10.4); PLATELET 184 x1000/uL (130-400); RED BLOOD CELL COUNT 3.09 mill/uL (4.2-5.4); RED CELL DISTRIBUTION WIDTH 16.8 % (11.6-14.6)
[2021-05-15 16:11] LABS: CHLORIDE 114 mEq/L (98-107)
[2021-05-15 16:21] LABS: PLATELET ESTIMATE NORMAL
[2021-05-15] MEDS: FAMOTIDINE 20MG TABLET PO SCH (20:44)
[2021-05-16] VITALS (12 sets, daily range): BP systolic 117–135; BP diastolic 71–82
[2021-05-16] MEDS: IPRATROPIUM/ALBUTEROL 0.5-3(2.5)MG/3ML NEB HHN SCH ×6 (00:08→21:07)
[2021-05-16] MEDS: BLOOD SUGAR DIAGNOSTIC STRIP TEST SCH ×4 (05:09→23:31)
[2021-05-16] MEDS: INSULIN LISPRO 100 UNITS/ML SUBCUT SCH ×4 (05:09→23:32)
[2021-05-16] MEDS: DILTIAZEM HCL 60MG TABLET PO SCH ×4 (05:10→23:32)
[2021-05-16 07:56] LABS: HEMATOCRIT. 28.1 % (36.0-48.0); HEMOGLOBIN. 9.1 g/dL (12.0-16.0); MEAN CORPUSCULAR HEMOGLOBIN 26.5 pg (28.0-32.0); MEAN CORPUSCULAR VOLUME 82.3 fL (81.0-99.0); MEAN PLATELET VOLUME 11.5 fl (7.4-10.4); PLATELET 198 x1000/uL (130-400); RED BLOOD CELL COUNT 3.42 mill/uL (4.2-5.4); RED CELL DISTRIBUTION WIDTH 16.6 % (11.6-14.6)
[2021-05-16 08:07] LABS: CHLORIDE 113 mEq/L (98-107)
[2021-05-16 08:44] LABS: BG BASE EXCESS 4.4 mmol/L (-2.0-2.0); BG CARBOXYHEMOGLOBIN 0.3 % (0.5-1.5); BG DEOXYHEMOGLOBIN 2.2 % (0.0-5.0); BG FRACTION INSPIRED OXYGEN 30; BG HCO3 ACT 28.2 mmol/L (22.0-26.0); BG METHEMOGLOBIN 0.3 % (0.0-1.5); BG OXYGEN SATURATION 97.8 % (92.0-98.5); BG OXYHEMOGLOBIN 97.2 % (94.0-97.0); BG PCO2 38.9 mmHg (35.0-45.0); BG PH 7.478 (7.350-7.450); BG PO2 112.9 mmHg (75.0-100.0); BG SAMPLE SITE RIGHT RADIAL; BG TOTAL HEMOGLOBIN 9.4 g/dL (12.0-18.0); BG VENT MODE VENT - AC
[2021-05-16] MEDS: DOCUSATE SODIUM SUGAR FREE 100MG/10ML UDC NG SCH (08:57)
[2021-05-16] MEDS: FOLIC ACID/VITAMIN B COMP W-C TABLET PO SCH (08:58)
[2021-05-16] MEDS: CALCIUM ACETATE 667MG CAPSULE PO SCH ×3 (08:58→19:05)
[2021-05-16] MEDS: FUROSEMIDE 40MG/4ML VIAL IVP SCH (08:58)
[2021-05-16 12:42] LABS: PLATELET ESTIMATE NORMAL
[2021-05-16] MEDS: FAMOTIDINE 20MG TABLET PO SCH (21:51)
[2021-05-17] VITALS (12 sets, daily range): BP systolic 94–143; BP diastolic 61–89
[2021-05-17] MEDS: IPRATROPIUM/ALBUTEROL 0.5-3(2.5)MG/3ML NEB HHN SCH ×6 (00:45→20:32)
[2021-05-17] MEDS: INSULIN LISPRO 100 UNITS/ML SUBCUT SCH ×3 (06:00→18:00)
[2021-05-17] MEDS: BLOOD SUGAR DIAGNOSTIC STRIP TEST SCH ×3 (06:03→18:36)
[2021-05-17] MEDS: DILTIAZEM HCL 60MG TABLET PO SCH ×3 (06:15→18:39)
[2021-05-17] MEDS: FOLIC ACID/VITAMIN B COMP W-C TABLET PO SCH (09:23)
[2021-05-17] MEDS: CALCIUM ACETATE 667MG CAPSULE PO SCH ×3 (09:23→18:39)
[2021-05-17] MEDS: DOCUSATE SODIUM SUGAR FREE 100MG/10ML UDC NG SCH (09:24)
[2021-05-17] MEDS: FUROSEMIDE 40MG/4ML VIAL IVP SCH (09:24)
[2021-05-17] MEDS: FAMOTIDINE 20MG TABLET PO SCH (21:00)
[2021-05-18] VITALS (12 sets, daily range): BP systolic 107–143; BP diastolic 64–95
[2021-05-18] MEDS ORDERED: FAMOTIDINE 20MG TABLET PO SCH
[2021-05-18] MEDS: IPRATROPIUM/ALBUTEROL 0.5-3(2.5)MG/3ML NEB HHN SCH (00:14)
[2021-05-18] MEDS: DILTIAZEM HCL 60MG TABLET PO SCH ×4 (00:17→16:49)
[2021-05-18] MEDS: BLOOD SUGAR DIAGNOSTIC STRIP TEST SCH ×4 (05:38→18:12)
[2021-05-18] MEDS: INSULIN LISPRO 100 UNITS/ML SUBCUT SCH ×4 (05:39→17:32)
[2021-05-18] MEDS: CALCIUM ACETATE 667MG CAPSULE PO SCH ×3 (07:57→16:49)
[2021-05-18] MEDS: FUROSEMIDE 40MG/4ML VIAL IVP SCH (08:00)
[2021-05-18] MEDS: DOCUSATE SODIUM SUGAR FREE 100MG/10ML UDC NG SCH (08:00)
[2021-05-18] MEDS: FOLIC ACID/VITAMIN B COMP W-C TABLET PO SCH (08:00)
[2021-05-18 08:15] LABS: HEMATOCRIT. 28.7 % (36.0-48.0); HEMOGLOBIN. 8.9 g/dL (12.0-16.0); MEAN CORPUSCULAR HEMOGLOBIN 26.3 pg (28.0-32.0); MEAN CORPUSCULAR VOLUME 84.5 fL (81.0-99.0); MEAN PLATELET VOLUME 11.5 fl (7.4-10.4); PLATELET 180 x1000/uL (130-400); RED CELL DISTRIBUTION WIDTH 17.2 % (11.6-14.6)
[2021-05-18 08:21] LABS: CHLORIDE 115 mEq/L (98-107)
[2021-05-18 13:56] LABS: PLATELET ESTIMATE NORMAL
[2021-05-19] VITALS (11 sets, daily range): BP systolic 108–129; BP diastolic 58–82
[2021-05-19] MEDS: BLOOD SUGAR DIAGNOSTIC STRIP TEST SCH ×3 (00:49→12:48)
[2021-05-19] MEDS: DILTIAZEM HCL 60MG TABLET PO SCH ×5 (00:49→23:40)
[2021-05-19 05:32] LABS: HEMOGLOBIN. 8.9 g/dL (12.0-16.0); MEAN CORPUSCULAR HEMOGLOBIN 26.6 pg (28.0-32.0); MEAN CORPUSCULAR VOLUME 83.6 fL (81.0-99.0); MEAN PLATELET VOLUME 12.1 fl (7.4-10.4); PLATELET 170 x1000/uL (130-400); RED BLOOD CELL COUNT 3.34 mill/uL (4.2-5.4); RED CELL DISTRIBUTION WIDTH 16.9 % (11.6-14.6)
[2021-05-19] MEDS: INSULIN LISPRO 100 UNITS/ML SUBCUT SCH ×3 (06:00→12:00)
[2021-05-19 06:14] LABS: CHLORIDE 114 mEq/L (98-107)
[2021-05-19] MEDS: CALCIUM ACETATE 667MG CAPSULE PO SCH ×3 (09:47→18:22)
[2021-05-19] MEDS: FOLIC ACID/VITAMIN B COMP W-C TABLET PO SCH (09:47)
[2021-05-19] MEDS: FUROSEMIDE 40MG/4ML VIAL IVP SCH (09:47)
[2021-05-19] MEDS: DOCUSATE SODIUM SUGAR FREE 100MG/10ML UDC NG SCH (09:47)
[2021-05-19] MEDS ORDERED: POTASSIUM CHLORIDE 20MEQ/PACKET PEG NR (12:15)
[2021-05-19 14:27] LABS: PHOSPHORUS 3.6 mg/dL (2.5-4.9)
[2021-05-19 18:36] LABS: PLATELET ESTIMATE NORMAL
[2021-05-20] VITALS (12 sets, daily range): BP systolic 102–133; BP diastolic 71–85
[2021-05-20 05:46] LABS: HEMATOCRIT. 28.7 % (36.0-48.0); HEMOGLOBIN. 9.2 g/dL (12.0-16.0); MEAN CORPUSCULAR HEMOGLOBIN 26.9 pg (28.0-32.0); MEAN CORPUSCULAR VOLUME 83.7 fL (81.0-99.0); MEAN PLATELET VOLUME 11.8 fl (7.4-10.4); PLATELET 156 x1000/uL (130-400); RED BLOOD CELL COUNT 3.43 mill/uL (4.2-5.4); RED CELL DISTRIBUTION WIDTH 17.2 % (11.6-14.6)
[2021-05-20] MEDS: DILTIAZEM HCL 60MG TABLET PO SCH ×4 (06:32→23:10)
[2021-05-20 07:07] LABS: CHLORIDE 116 mEq/L (98-107)
[2021-05-20] MEDS: DOCUSATE SODIUM SUGAR FREE 100MG/10ML UDC NG SCH (10:13)
[2021-05-20] MEDS: FUROSEMIDE 40MG/4ML VIAL IVP SCH (10:14)
[2021-05-20] MEDS: CALCIUM ACETATE 667MG CAPSULE PO SCH ×3 (10:14→18:53)
[2021-05-20] MEDS: FOLIC ACID/VITAMIN B COMP W-C TABLET PO SCH (10:14)
[2021-05-20] MEDS: MIDODRINE HCL 5MG TABLET PO PRN (14:15)
[2021-05-20 14:17] LABS: PLATELET ESTIMATE NORMAL
[2021-05-21] VITALS (12 sets, daily range): BP systolic 114–143; BP diastolic 71–103
[2021-05-21 05:01] LABS: CHLORIDE 116 mEq/L (98-107)
[2021-05-21 05:09] LABS: PHOSPHORUS 4.6 mg/dL (2.5-4.9)
[2021-05-21] MEDS: DILTIAZEM HCL 60MG TABLET PO SCH ×3 (05:44→18:40)
[2021-05-21 06:09] LABS: BASOPHILS % 0.7 % (0.0-2.0); EOSINOPHILS % 0.9 % (0.0-5.0); HEMATOCRIT. 30.1 % (36.0-48.0); HEMOGLOBIN. 9.2 g/dL (12.0-16.0); LYMPHOCYTES % 8.6 % (20.0-50.0); MEAN CORPUSCULAR HEMOGLOBIN 26.2 pg (28.0-32.0); MEAN CORPUSCULAR VOLUME 85.6 fL (81.0-99.0); MEAN PLATELET VOLUME 12.3 fl (7.4-10.4); MONOCYTES % 6.9 % (2.0-8.0); NEUTROPHILS % 82.9 % (40.0-76.0); PLATELET 153 x1000/uL (130-400); RED BLOOD CELL COUNT 3.52 mill/uL (4.2-5.4); RED CELL DISTRIBUTION WIDTH 16.8 % (11.6-14.6)
[2021-05-21] MEDS: DOCUSATE SODIUM SUGAR FREE 100MG/10ML UDC NG SCH (09:26)
[2021-05-21] MEDS: FOLIC ACID/VITAMIN B COMP W-C TABLET PO SCH (09:26)
[2021-05-21] MEDS: CALCIUM ACETATE 667MG CAPSULE PO SCH ×3 (09:26→18:40)
[2021-05-21] MEDS: DEXTROSE 5% WATER 1,000 ML IV SCH (11:38)
[2021-05-22] VITALS (13 sets, daily range): BP systolic 108–140; BP diastolic 67–90
[2021-05-22] MEDS: DILTIAZEM HCL 60MG TABLET PO SCH ×4 (00:15→18:25)
[2021-05-22] MEDS: DEXTROSE 5% WATER 1,000 ML IV SCH (06:58)
[2021-05-22 08:02] LABS: CHLORIDE 116 mEq/L (98-107)
[2021-05-22 08:20] LABS: BASOPHILS % 0.4 % (0.0-2.0); EOSINOPHILS % 0.7 % (0.0-5.0); HEMATOCRIT. 29.3 % (36.0-48.0); HEMOGLOBIN. 9.2 g/dL (12.0-16.0); LYMPHOCYTES % 7.6 % (20.0-50.0); MEAN CORPUSCULAR HEMOGLOBIN 26.7 pg (28.0-32.0); MONOCYTES % 7.8 % (2.0-8.0); NEUTROPHILS % 83.5 % (40.0-76.0); RED BLOOD CELL COUNT 3.44 mill/uL (4.2-5.4); RED CELL DISTRIBUTION WIDTH 16.7 % (11.6-14.6)
[2021-05-22] MEDS: DOCUSATE SODIUM SUGAR FREE 100MG/10ML UDC NG SCH (08:26)
[2021-05-22] MEDS: CALCIUM ACETATE 667MG CAPSULE PO SCH ×3 (08:26→18:25)
[2021-05-22 09:47] LABS: PLATELET 157 x1000/uL (130-400)
[2021-05-23] VITALS (12 sets, daily range): BP systolic 104–135; BP diastolic 62–82
[2021-05-23] MEDS: DEXTROSE 5% WATER 1,000 ML IV SCH ×2 (02:30→22:30)
[2021-05-23] MEDS: DILTIAZEM HCL 60MG TABLET PO SCH ×4 (06:39→18:16)
[2021-05-23] MEDS: CALCIUM ACETATE 667MG CAPSULE PO SCH ×3 (07:42→18:17)
[2021-05-23] MEDS: DOCUSATE SODIUM SUGAR FREE 100MG/10ML UDC NG SCH (08:44)
[2021-05-24] VITALS (12 sets, daily range): BP systolic 100–134; BP diastolic 64–95
[2021-05-24] MEDS: DILTIAZEM HCL 60MG TABLET PO SCH ×5 (05:54→23:15)
[2021-05-24 06:39] LABS: HEMATOCRIT 30.2 % (36.0-48.0); HEMOGLOBIN 9.4 g/dL (12.0-16.0); MEAN CORPUSCULAR HEMOGLOBIN 27.1 pg (28.0-32.0); MEAN CORPUSCULAR VOLUME 87.2 fL (81.0-99.0); PLATELET 144 x1000/uL (130-400); RED BLOOD CELL COUNT 3.46 mill/uL (4.2-5.4); RED CELL DISTRIBUTION WIDTH 17.1 % (11.6-14.6)
[2021-05-24] MEDS: CALCIUM ACETATE 667MG CAPSULE PO SCH ×3 (08:00→18:28)
[2021-05-24] MEDS: DOCUSATE SODIUM SUGAR FREE 100MG/10ML UDC NG SCH (09:00)
[2021-05-24 18:09] LABS: CHLORIDE 114 mEq/L (98-107)
[2021-05-24] MEDS: DEXTROSE 5% WATER 1,000 ML IV SCH (18:38)
[2021-05-25] VITALS (11 sets, daily range): BP systolic 99–127; BP diastolic 60–85
[2021-05-25] MEDS: DILTIAZEM HCL 60MG TABLET PO SCH ×3 (05:22→17:40)
[2021-05-25 05:53] LABS: CHLORIDE 110 mEq/L (98-107)
[2021-05-25 05:54] LABS: BASOPHILS % 0.7 % (0.0-2.0); EOSINOPHILS % 0.5 % (0.0-5.0); HEMATOCRIT. 28.4 % (36.0-48.0); LYMPHOCYTES % 9.8 % (20.0-50.0); MEAN CORPUSCULAR HEMOGLOBIN 26.2 pg (28.0-32.0); MEAN CORPUSCULAR VOLUME 82.9 fL (81.0-99.0); MEAN PLATELET VOLUME 12.3 fl (7.4-10.4); MONOCYTES % 6.2 % (2.0-8.0); NEUTROPHILS % 82.8 % (40.0-76.0); PLATELET 183 x1000/uL (130-400); RED BLOOD CELL COUNT 3.42 mill/uL (4.2-5.4); RED CELL DISTRIBUTION WIDTH 16.3 % (11.6-14.6)
[2021-05-25] MEDS: DOCUSATE SODIUM SUGAR FREE 100MG/10ML UDC NG SCH (08:57)
[2021-05-25] MEDS: CALCIUM ACETATE 667MG CAPSULE PO SCH ×2 (09:08→13:01)
[2021-05-25] MEDS: DEXTROSE 5% WATER 1,000 ML IV SCH (14:27)
[2021-05-25] MEDS: CALCIUM ACETATE 667 MG/5 ML SOLUTION GT SCH (17:39)
[2021-05-25] MEDS: FAMOTIDINE 20MG/2ML VIAL IV SCH (21:06)
[2021-05-26] VITALS (12 sets, daily range): BP systolic 102–135; BP diastolic 50–80
[2021-05-26] MEDS: DILTIAZEM HCL 60MG TABLET PO SCH ×4 (00:38→17:16)
[2021-05-26] MEDS: FAMOTIDINE 20MG/2ML VIAL IV SCH ×2 (09:17→20:36)
[2021-05-26] MEDS: DOCUSATE SODIUM SUGAR FREE 100MG/10ML UDC NG SCH (09:18)
[2021-05-26] MEDS: CALCIUM ACETATE 667 MG/5 ML SOLUTION GT SCH ×3 (09:18→17:16)
[2021-05-27] VITALS (12 sets, daily range): BP systolic 99–127; BP diastolic 56–82
[2021-05-27] MEDS: DILTIAZEM HCL 60MG TABLET PO SCH ×4 (00:39→17:38)
[2021-05-27] MEDS: DOCUSATE SODIUM SUGAR FREE 100MG/10ML UDC NG SCH (09:29)
[2021-05-27] MEDS: FAMOTIDINE 20MG/2ML VIAL IV SCH ×2 (09:30→21:23)
[2021-05-27] MEDS: CALCIUM ACETATE 667 MG/5 ML SOLUTION GT SCH ×3 (09:30→17:38)
[2021-05-28] VITALS (10 sets, daily range): BP systolic 100–124; BP diastolic 68–94
[2021-05-28] MEDS: DILTIAZEM HCL 60MG TABLET PO SCH ×4 (06:00→17:10)
[2021-05-28] MEDS: FAMOTIDINE 20MG/2ML VIAL IV SCH ×2 (08:57→20:55)
[2021-05-28] MEDS: DOCUSATE SODIUM SUGAR FREE 100MG/10ML UDC NG SCH (08:57)
[2021-05-28] MEDS: CALCIUM ACETATE 667 MG/5 ML SOLUTION GT SCH ×3 (09:11→17:10)
[2021-05-29] VITALS (12 sets, daily range): BP systolic 101–123; BP diastolic 69–88
[2021-05-29] MEDS: DILTIAZEM HCL 60MG TABLET PO SCH ×4 (00:58→17:25)
[2021-05-29] MEDS: FAMOTIDINE 20MG/2ML VIAL IV SCH ×2 (09:20→21:23)
[2021-05-29] MEDS: CALCIUM ACETATE 667 MG/5 ML SOLUTION GT SCH ×3 (09:20→17:25)
[2021-05-29] MEDS: DOCUSATE SODIUM SUGAR FREE 100MG/10ML UDC NG SCH (09:20)
[2021-05-30] VITALS (11 sets, daily range): BP systolic 102–131; BP diastolic 65–84
[2021-05-30] MEDS: DILTIAZEM HCL 60MG TABLET PO SCH ×4 (00:21→18:18)
[2021-05-30] MEDS: CALCIUM ACETATE 667 MG/5 ML SOLUTION GT SCH ×3 (08:00→18:18)
[2021-05-30 08:12] LABS: CHLORIDE 110 mEq/L (98-107)
[2021-05-30 08:17] LABS: BASOPHILS % 0.5 % (0.0-2.0); EOSINOPHILS % 0.3 % (0.0-5.0); HEMATOCRIT. 24.1 % (36.0-48.0); HEMOGLOBIN. 7.9 g/dL (12.0-16.0); LYMPHOCYTES % 11.4 % (20.0-50.0); MEAN CORPUSCULAR VOLUME 82.2 fL (81.0-99.0); MEAN PLATELET VOLUME 11.3 fl (7.4-10.4); MONOCYTES % 7.1 % (2.0-8.0); NEUTROPHILS % 80.7 % (40.0-76.0); PLATELET 173 x1000/uL (130-400); RED BLOOD CELL COUNT 2.93 mill/uL (4.2-5.4); RED CELL DISTRIBUTION WIDTH 16.3 % (11.6-14.6)
[2021-05-30] MEDS: DOCUSATE SODIUM SUGAR FREE 100MG/10ML UDC NG SCH (08:19)
[2021-05-30] MEDS: FAMOTIDINE 20MG/2ML VIAL IV SCH ×2 (08:19→20:47)
== END 2021-05-31 00:02 | DRG 4 ==
LOC: ER 09:09 → EDBEDREQTM 10:49 → EDBEDREQSVC 10:49 → EDBEDREQ 10:49 → MICUSO 11:39 → EDBEDREQTM 11:51 → EDBEDREQ 11:51 → CANRESERV 13:40 → ENRESERV 13:40 → MICUNO 04-20 21:21 → MICUSO 04-24 20:29 → MICUNO 05-05 05:38 → 5EST 05-10 14:50
PROVIDERS: ADMIT Internal Medicine; ATTEND Internal Medicine
PROC: 5A1955Z Respiratory Ventilation, Greater than 96 Consecutive Hours (ICD-10-PCS; principal; 2021-04-19)
PROC: 0BH17EZ Insertion of Endotracheal Airway into Trachea, Via Natural or Artificial Opening (ICD-10-PCS; 2021-04-19)
PROC: 06HY33Z Insertion of Infusion Device into Lower Vein, Percutaneous Approach (ICD-10-PCS; 2021-04-19)
PROC: B54BZZA Ultrasonography of Right Lower Extremity Veins, Guidance (ICD-10-PCS; 2021-04-19)
PROC: 5A12012 Performance of Cardiac Output, Single, Manual (ICD-10-PCS; 2021-04-19)
PROC: 02HV33Z Insertion of Infusion Device into Superior Vena Cava, Percutaneous Approach (ICD-10-PCS; 2021-04-21)
PROC: B548ZZA Ultrasonography of Superior Vena Cava, Guidance (ICD-10-PCS; 2021-04-21)
PROC: 02HV33Z Insertion of Infusion Device into Superior Vena Cava, Percutaneous Approach (ICD-10-PCS; 2021-04-23)
PROC: B548ZZA Ultrasonography of Superior Vena Cava, Guidance (ICD-10-PCS; 2021-04-23)
PROC: 0B113F4 Bypass Trachea to Cutaneous with Tracheostomy Device, Percutaneous Approach (ICD-10-PCS; 2021-05-09)
PROC: 0DH63UZ Insertion of Feeding Device into Stomach, Percutaneous Approach (ICD-10-PCS; 2021-05-12)
PROC: 30233N1 Transfusion of Nonautologous Red Blood Cells into Peripheral Vein, Percutaneous Approach (ICD-10-PCS; 2021-05-15)
DX: A41.89 Other specified sepsis (principal); I21.4 Non-ST elevation (NSTEMI) myocardial infarction; I46.9 Cardiac arrest, cause unspecified; I50.23 Acute on chronic systolic (congestive) heart failure; J12.82 Pneumonia due to coronavirus disease 2019; J96.01 Acute respiratory failure with hypoxia; N17.0 Acute kidney failure with tubular necrosis; R65.21 Severe sepsis with septic shock; U07.1 COVID-19; E43 Unspecified severe protein-calorie malnutrition; I50.33 Acute on chronic diastolic (congestive) heart failure; G92.8 Other toxic encephalopathy; E87.2 Acidosis; M62.82 Rhabdomyolysis; N39.0 Urinary tract infection, site not specified; G93.1 Anoxic brain damage, not elsewhere classified; C90.00 Multiple myeloma not having achieved remission; E87.0 Hyperosmolality and hypernatremia; I13.0 Hypertensive heart and chronic kidney disease with heart failure and stage 1 through stage 4 chronic kidney disease, or unspecified chronic kidney disease; K56.7 Ileus, unspecified; Z99.11 Dependence on respirator [ventilator] status; N18.9 Chronic kidney disease, unspecified; E87.5 Hyperkalemia; D64.9 Anemia, unspecified; E88.09 Other disorders of plasma-protein metabolism, not elsewhere classified; D69.6 Thrombocytopenia, unspecified; E87.6 Hypokalemia; I49.3 Ventricular premature depolarization; R74.01 Elevation of levels of liver transaminase levels; S90.922A Unspecified superficial injury of left foot, initial encounter; S90.921A Unspecified superficial injury of right foot, initial encounter; X58.XXXA Exposure to other specified factors, initial encounter; R68.0 Hypothermia, not associated with low environmental temperature; R80.9 Proteinuria, unspecified; L89.896 Pressure-induced deep tissue damage of other site; K29.00 Acute gastritis without bleeding; I48.0 Paroxysmal atrial fibrillation; R13.10 Dysphagia, unspecified; Z78.1 Physical restraint status; Z79.01 Long term (current) use of anticoagulants; Z92.21 Personal history of antineoplastic chemotherapy; Z93.1 Gastrostomy status; Y93.89 Activity, other specified; Y92.89 Other specified places as the place of occurrence of the external cause; Y99.8 Other external cause status; Z68.33 Body mass index [BMI] 33.0-33.9, adult
CPT/HCPCS: 36415; 36556; 36600; 70551; 71045; 74018; 76770; 76937; 80048; 80053; 80076; 80202; 81003; 82040; 82140; 82375; 82550; 82607; 82728; 82746; 82805; 82962; 83036; 83540; 83550; 83605; 83615; 83735; 83880; 84100; 84134; 84145; 84439; 84443; 84481; 84484; 85025; 85027; 85379; 85384; 86038; 86140; 86160; 86705; 86709; 86803; 86850; 86900; 86920; 87070; 87077; 87186; 87340; 87426; 93005; 93306; 93923; 93970; 94002; 94003; 94640; 99291; A6261; C1725; C1752; C1769; C9803; J0282; J0690; J0692; J1100; J1644; J1650; J1815; J1940; J2185; J2250; J2270; J2370; J2405; J2543; J3010; J3370; J3480; J3490; J7030; J7040; J7042; J7050; J7060; J7070; J7608; P9016; U0003; U0005; A4315